=== PATIENT | female | born 1960 | race Caucasian/White ===

== ENCOUNTER 2019-12-27 20:30 | Inpatient (IN) | payer BC ==
[2019-12-27] MEDS ORDERED: MORPHINE SULFATE 4 MG/ML SYRINGE IVP STA (20:37)
[2019-12-27] MEDS ORDERED: HEPARIN SODIUM,PORCINE 5,000 UNIT/ML 1 ML VIAL IV STA (20:38)
--- NOTE | 2019-12-27 20:44 | ED ---
Chest Pain HPI - General Chief Complaint: Chest Pain Stated Complaint: STEMI Time Seen by Provider: 12/27/19 20:30 Source: patient, EMS Mode of arrival: EMS Limitations: no limitations - History of Present Illness Initial Comments: The patient is a 59-year-old female with no past medical history presents emergency room with reported chest pain. Chest pain with onset around 5 PM. She states that it as a 10 out of 10 pain located in the central portion of her chest with radiation to both arms. Denies any unilateral numbness or weakness. No previous history of cardiac disease. Denies cough, fevers or chills. No ripping or tearing sensation to her back. Has not seen a doctor in 20 years. EMS provided the patient with 324 mg aspirin and 3 nitro. Patient denies stress testing or history of cardiac cath. There are no other alleviating, precipitating or modifying factors - Related Data Home Medications Medication Instructions Recorded Confirmed Acetaminophen/Diphenhydramine 1 tab PO HS 12/28/19 12/28/19 [Tylenol PM 500-25mg] Previous Rx's Medication Instructions Recorded Aspirin 81 mg PO DAILY #30 chew 12/30/19 Atorvastatin [Lipitor] 80 mg PO HS #30 tab 12/30/19 Lisinopril [Zestril] 10 mg PO DAILY #30 tab 12/30/19 Metoprolol Tartrate [Lopressor] 50 mg PO BID #60 tab 12/30/19 Nitroglycerin Sl Tabs [Nitrostat] 0.4 mg SUBLINGUAL Q5M PRN #30 tab 12/30/19 Ticagrelor [Brilinta] 90 mg PO BID #60 tab 12/30/19 Allergies Allergy/AdvReac Type Severity Reaction Status Date / Time No Known Allergies Allergy Verified 12/28/19 09:07 Review of Systems ROS Statement: Those systems with pertinent positive or pertinent negative responses have been documented in the HPI. ROS Other: All systems not noted in ROS Statement are negative. EKG Findings - EKG Comments: EKG Findings:: EKG demonstrates a sinus rhythm with a ventricular rate of 74. MD interval 156. QRS 98. QTC of 439. ST segment elevation in 2, 3 and aVF with her typical changes in 1 and aVL. Depression in V2. Past Medical History - Past Family History Father Family Medical History: Cancer, Hypertension Additional Family Medical History / Comment(s): Pancreatic cancer, Kidney cancer Mother Family Medical History: Cancer Additional Family Medical History / Comment(s): Lung cancer General Exam Limitations: no limitations General appearance: alert, in no apparent distress Head exam: Present: atraumatic, normocephalic, normal inspection Eye exam: Present: normal appearance, PERRL, EOMI. Absent: scleral icterus, conjunctival injection, periorbital swelling ENT exam: Present: normal exam, mucous membranes moist Neck exam: Present: normal inspection. Absent: tenderness, meningismus, lymphadenopathy Respiratory exam: Present: normal lung sounds bilaterally. Absent: respiratory distress, wheezes, rales, rhonchi, stridor Cardiovascular Exam: Present: regular rate, normal rhythm, normal heart sounds. Absent: systolic murmur, diastolic murmur, rubs, gallop, clicks GI/Abdominal exam: Present: soft, normal bowel sounds. Absent: distended, tenderness, guarding, rebound, rigid Extremities exam: Present: normal inspection, full ROM, normal capillary refill. Absent: tenderness, pedal edema, joint swelling, calf tenderness Back exam: Present: normal inspection Neurological exam: Present: alert, oriented X3, CN II-XII intact Psychiatric exam: Present: normal affect, normal mood Skin exam: Present: warm, dry, intact, normal color. Absent: rash Course Vital Signs 12/27/19 12/27/19 12/27/19 20:31 20:44 20:48 Temperature Pulse Rate 83 Respiratory 16 Rate Blood Pressure 161/91 134/69 72/51 O2 Sat by Pulse 98 98 98 Oximetry 12/27/19 12/27/19 12/27/19 20:50 20:52 20:55 Temperature 97.6 F Pulse Rate 71 Respiratory 7 L 12 14 Rate Blood Pressure 92/72 107/90 O2 Sat by Pulse 99 98 99 Oximetry 12/27/19 20:56 Temperature Pulse Rate Respiratory Rate Blood Pressure 129/96 O2 Sat by Pulse Oximetry Chest Pain MDM - MDM Upon arrival patient placed in room 11. EKG performed demonstrates inferior wall STEMI. Discuss case with Dr. Rider at 2024. Patient will be taken to the microbiology lab analyst. Received heparin bolus, 4 mg of morphine. Lab studies conducted and portable chest x-ray performed. Patient transferred to the microbiology lab analyst in stable condition Disposition Clinical Impression: ST elevation myocardial infarction (STEMI) Disposition: ADMITTED IP TO THIS HOSP Condition: Serious Is patient prescribed a controlled substance at d/c from ED?: No Decision to Admit Reason: Admit from EC Decision Date: 12/27/19 Decision Time: 20:45
[2019-12-27] MEDS ORDERED: NALOXONE 0.4 MG/ML 1 ML VIAL IV PRN (20:46)
[2019-12-27 20:54] LABS: HCT 46.7 % (34.0-46.0); HGB 15.1 gm/dL (11.4-16.0); MCH 30.4 pg (25.0-35.0); MCHC 32.3 g/dL (31.0-37.0); MCV 94.4 fL (80.0-100.0); Mean Platelet Volume 7.8; Platelet Count 265 k/uL (150-450); RBC 4.95 m/uL (3.80-5.40); RDW 12.5 % (11.5-15.5); WBC 14.5 k/uL (3.8-10.6)
[2019-12-27] MEDS ORDERED: LIDOCAINE 1% INJ 10MG/ML (20 ML MDV) ONE (20:57)
[2019-12-27] MEDS ORDERED: fentaNYL (PF) 50 MCG/ML 2 ML AMP ONE (20:58)
[2019-12-27] MEDS ORDERED: VERAPAMIL 2.5 MG/ML 2 ML AMP ONE (21:04)
[2019-12-27 21:05] LABS: Albumin 4.2 g/dL (3.5-5.0); Calcium 9.4 mg/dL (8.4-10.2); INR 0.9 (<1.2); Potassium 3.9 mmol/L (3.5-5.1); Prothrombin Time 9.7 sec (9.0-12.0); Total Bilirubin 0.3 mg/dL (0.2-1.3); Total Protein 7.8 g/dL (6.3-8.2)
[2019-12-27] MEDS ORDERED: LIDOCAINE 1% INJ 10MG/ML (20 ML MDV) SQ ONE (21:07)
[2019-12-27] MEDS ORDERED: fentaNYL (PF) 50 MCG/ML 2 ML AMP IVP ONE (21:07)
[2019-12-27] MEDS ORDERED: VERAPAMIL SYRINGE (5 MG/10 ML) INTRAARTER ONE (21:10)
[2019-12-27] MEDS ORDERED: IV FLUID CONTINUATION 1,000 ML IV ONE (21:11)
[2019-12-27 21:12] LABS: Creatine Kinase MB 0.7 ng/mL (0.0-2.4); Troponin I 0.034 ng/mL (0.000-0.034)
[2019-12-27] MEDS ORDERED: BIVALIRUDIN BOLUS 250 MG/50 ML IV ONE (21:20)
[2019-12-27] MEDS ORDERED: TICAGRELOR 90 MG TAB ONE (21:20)
[2019-12-27] MEDS ORDERED: BIVALIRUDIN 250 MG in SODIUM CHLORIDE 0.9% 50 ML IV ONE (21:21)
[2019-12-27] MEDS ORDERED: TICAGRELOR 90 MG TAB PO ONE (21:26)
[2019-12-27] MEDS ORDERED: ATROPINE SULFATE 0.1 MG/ML 10ML SYRINGE IV ONE (21:28)
--- NOTE | 2019-12-27 21:33 | XR ---
EXAMINATION TYPE: XR chest 2V DATE OF EXAM: 12/27/2019 COMPARISON: NONE HISTORY: Chest pain TECHNIQUE: FINDINGS: Heart is normal. Lungs are clear of infiltrate. Exam limited by patient's size. There is no heart failure. There is no sign of pleural effusion. There are chest leads. IMPRESSION: No active cardiopulmonary disease.
[2019-12-27] MEDS ORDERED: IOPAMIDOL-370 125ML BTL INJ ONE (21:39)
[2019-12-27] MEDS ORDERED: IOPAMIDOL-370 100ML BTL INJ ONE ×2 (21:52)
--- NOTE | 2019-12-27 22:00 | CONS ---
CONSULTATION Mrs. Roberts is a 59-year-old female with no prior documented history of coronary artery disease who does not follow with a physician, who for the last 3 days has been having chest discomfort on and off. Today the discomfort was quite severe, radiating to both arms. She felt dizzy and quite dyspneic, came into the emergency room and was found to have evidence of inferoposterior myocardial infarction. The patient has not seen a physician in many years. She takes no medication. She has no documented history of hypertension, hyperlipidemia, diabetes, and she is a nonsmoker. She has no prior history of chest discomfort or significant dyspnea on exertion. No PND, orthopnea or peripheral edema. No palpitation or syncope. Her coronary risk factors are negative for hypertension, hyperlipidemia or diabetes, although she has not seen a physician. REVIEW OF SYSTEMS: RESPIRATORY SYSTEM: No documented history of asthma, emphysema . GI SYSTEM: No recent GI bleeding. No peptic ulcer disease. SYSTEM: No dysuria or hematuria. NERVOUS SYSTEM: No stroke or seizure. SOCIAL HISTORY: No history of alcohol or tobacco use. PHYSICAL EXAMINATION: [id number] female, alert, oriented, in mild discomfort, evaluated in the cardiac catheterization laboratory. Heart rate in the 70s. HEAD: Normocephalic. Eyes: Sclerae anicteric. NECK: Good carotid upstroke. No bruit. No jugular venous distention. LUNGS: Clear to auscultation anteriorly. HEART: Regular rate, rhythm. S1, S2. No S3. No S4. No rub. ABDOMEN: Soft, nontender, obese. Positive bowel sounds. No organomegaly. EXTREMITIES: No edema. EKG revealed sinus mechanism, ST-segment elevation II, III, aVF with ST-segment depression and T-wave inversion in leads V1, V2 as well as lead I and aVL consistent with inferoposterior myocardial infarction. IMPRESSION: Acute myocardial infarction. RECOMMENDATIONS: I have recommended proceeding with coronary angiography to assess her status and guide her treatment. The rationale behind the procedure as well as risks and complications were discussed with the patient, who is in full understanding and agreement. Thank you for this consult. Will follow with you. MMODL / IJN: [id number] /
[2019-12-27] MEDS ORDERED: MAG HYDROX/AL HYDROX/SIMETH 30 ML CUP PO PRN (22:05)
[2019-12-27] MEDS ORDERED: ZOLPIDEM 5 MG TAB PO PRN (22:05)
[2019-12-27] MEDS ORDERED: RX INFO: IV CONTRAST WAS GIVEN 1 EACH MISC MISCELLANE PRN (22:05)
[2019-12-27] MEDS ORDERED: ATROPINE SULFATE 0.1 MG/ML 10ML SYRINGE IV PRN (22:05)
[2019-12-27] MEDS ORDERED: NITROGLYCERIN SL TABS 0.4 MG TAB SUBLINGUAL PRN (22:05)
[2019-12-27] MEDS ORDERED: METOPROLOL TARTRATE 25 MG TAB PO SCH (22:15)
[2019-12-27] MEDS ORDERED: SODIUM CHLORIDE 0.9% 1,000 ML IV SCH (22:15)
--- NOTE | 2019-12-27 22:41 | CC ---
CARDIAC CATHETERIZATION REPORT Mrs. Roberts is a 59-year-old female who does not follow with a physician. She presented to the emergency room with acute chest discomfort with ST-segment elevation in the inferior leads. In view of that, recommendation was made regarding cardiac catheterization. The procedure, its risks and complications were discussed with the patient, who was in full understanding and agreement. PROCEDURE DESCRIPTION: Patient was brought to the lab animal technician. She was draped and prepped it usual fashion. Using Xylocaine anesthesia and Seldinger technique, a 6-Ku[place]i sheath was introduced in the right radial artery. Selective right and left coronary angiography was performed using 6-Ku[place]i, FR4 guiding catheter. After obtaining images of the right coronary arteries and performing angioplasty and stenting, a 5-[place]i 3-1/2 bend left Betty catheter was introduced into the system and images of the left coronary system were also obtained. Following that, a 5-Ku[place]i tight pigtail catheter was introduced into the left ventricle and pressures were calculated. Following that, catheter and sheath were removed. Hemostasis was obtained with deployment of a TR band. There was no immediate complication. Patient was returned to her room in stable condition. There was no immediate complication. Of note, the patient received intravenous verapamil. FINDINGS: FLUOROSCOPY: There was calcification involving the left main and the LAD. LEFT MAIN: This is a large-sized vessel bifurcating into left circumflex and left anterior descending artery. The left main coronary artery has a 30% plaque distally prior to the bifurcation. LEFT ANTERIOR DESCENDING ARTERY: This is a large-sized vessel reaching toward the apex with a wrap around the apex segment giving rise to a moderately sized diagonal branch. The left anterior descending artery has mild intimal disease of 20% with no evidence of high-grade stenosis. LEFT CIRCUMFLEX: This is a nondominant vessel giving rise to one obtuse marginal branch. The left circumflex at the ostium has a 40% to 50% plaque. The obtuse marginal branch in the mid segment has another 50% plaque. The rest of the vessel has no high- grade stenosis. RIGHT CORONARY ARTERY: This is a large dominant vessel bifurcating distally into PDA and posterolateral segment and branches. The right coronary artery in the proximal segment has a 99% stenosis with haziness and slow flow into the distal vessels. HEMODYNAMICS: There was no gradient across the aortic valve. The left ventricular end- diastolic pressure was 20 mmHg. CONCLUSION: 1. Subtotally occluded proximal right coronary artery. 2. Mild disease in distal left main. 3. Moderate disease in the left circumflex. 4. Mild disease in the LAD. RECOMMENDATIONS: In view of findings and anatomy, I have recommended proceeding with angioplasty and stenting of the right coronary artery. The procedure, its risks and complications were discussed with the patient, who is in full understanding and agreement. KETTY / HOWARD: [id number] /
[2019-12-27 23:00] LABS: Glucose,Whole Blood 152 mg/dL (75-99)
--- NOTE | 2019-12-28 00:38 | PTCA ---
PERCUTANEOUSTRANS CORORONARY ANGIOGRAPHY Mrs. Roberts is a 59-year-old female who presented with an acute inferior myocardial infarction, underwent cardiac catheterization was found to have a subtotally occluded proximal right coronary artery. In view of that, recommendation was made regarding angioplasty and stenting, the procedure as well as the risks, and the complications were discussed with the patient who is in full understanding and agreement. PROCEDURE: Using the 6-Sinhala FR4 guiding catheter, after obtaining images of the right coronary artery, 0.014 balanced medium weight J-wire was advanced across the lesion, positioned distally. Subsequently an Lima catheter was introduced and one run was done with removal of thrombotic material. Following that, a 3.5 x 23 mm Xience Debby stent was deployed postdilated at 16 atmospheres. Following that, the balloon was removed and a 4.0 x 15 mm Xience Debby stent was deployed proximal to the first one and postdilated to 16 atmospheres and subsequently a 3.5 x 12 mm Xience Debby stent was deployed distally and postdilated to 16 atmospheres. Following that, a 4.0 x 15 mm NC Emerge balloon was advanced and multiple inflations were done in the stent, a maximum of 14 atmospheres. After the last inflation, after appropriate wait, the balloon and the guidewire were withdrawn back in the guiding catheter. Images were obtained, repeated. Those images reveal stable successful stenting. At that point, the guiding catheter, the balloon and the guidewire were removed. Images of the left coronary system and left ventricular end-diastolic pressure were calculated. Following that, catheter and sheaths were removed. Hemostasis was obtained with deployment of TR band. There was no immediate complication. Patient was returned to her room in stable condition. Of note, the patient received Angiomax as well as oral loading dose of Brilinta. Her EKG changes have improved and her discomfort has improved as well. Of note, during the procedure she had episode of sinus tachycardia, accelerated idioventricular rhythm and junctional rhythm that resolved. RESULTS: Successful stenting of subtotally occluded proximal right coronary artery with reduction of stenosis from 99% to 0%. RECOMMENDATION: Patient will be continued on aspirin, Brilinta, beta ethan, and statin. The importance of dual antiplatelet treatment were discussed with the patient and her family and they are in full understanding and agreement. Duration of procedure is 50 minutes. MMODL / IJN: [id number] /
[2019-12-28] MEDS ORDERED: ONDANSETRON 4 MG/2 ML VIAL IVP PRN (00:53)
--- NOTE | 2019-12-28 07:33 | PN ---
PROGRESS NOTE Mrs. Roberts is a 59-year-old female who has not seen a physician in over 20 years, who presented with an acute inferior myocardial infarction, underwent stenting of the right coronary artery that was subtotally occluded. She is doing well this morning. She has minimal chest discomfort. Her breathing has been stable. She denies any dizziness or palpitation. No nausea. She continued to be in sinus mechanism. She continues to be on aspirin once a day, lisinopril 5 mg twice a day, metoprolol tartrate 25 mg twice a day, Brilinta 90 mg daily. PHYSICAL EXAMINATION: Blood pressure running in the 160s with the heart rate in the 80s. LUNGS: Clear. HEART: Regular rate and rhythm. S1, S2. No S3 with systolic murmur heard at the base, ejection type. No diastolic murmur. No rub. ABDOMEN: Soft, nontender. EXTREMITIES: No edema. Right radial pulse intact. EKG revealed evidence of inferior myocardial infarction with improvement in the ST elevation. LAB DATA: BUN and creatinine 10 and 0.92. Her troponin up to 50. IMPRESSION: 1. Status post stenting of the right coronary artery in a setting of an acute inferior myocardial infarction. 2. Mild to moderate disease in the left coronary system. 3. Hypertension, not treated in the past. RECOMMENDATION: From the cardiac standpoint, I will increase the dose of her lisinopril and metoprolol. If stable, she should be able to be transferred to telemetry floor. An echocardiogram with Doppler will be obtained today and depending on her progress, further recommendation will be made. MMODL / IJN: [id number] /
[2019-12-28] MEDS: lisinopriL 10 MG TAB PO SCH ×2 (09:14→22:05)
[2019-12-28] MEDS: TICAGRELOR 90 MG TAB PO SCH ×2 (09:14→22:06)
[2019-12-28] MEDS: ASPIRIN 81 MG PO SCH (09:14)
[2019-12-28] MEDS: METOPROLOL TARTRATE 50 MG TAB PO SCH ×2 (09:15→22:06)
[2019-12-28 09:19] LABS: Glucose 137 mg/dL (74-99)
[2019-12-28 09:20] LABS: African American GFR (CKD) >90 (>60 ml/min/1.73 sqM); Anion Gap 8 mmol/L; Blood Urea Nitrogen 8 mg/dL (7-17); Calcium 8.8 mg/dL (8.4-10.2); Carbon Dioxide 25 mmol/L (22-30); Chloride 103 mmol/L (98-107); Cholesterol 200 mg/dL (<200); HDL Cholesterol 63 mg/dL (40-60); LDL Cholesterol,Calculated 120 mg/dL (0-99); Non-African American GFR(CKD) >90 (>60 ml/min/1.73 sqM); Potassium 4.3 mmol/L (3.5-5.1); Sodium 136 mmol/L (137-145); Triglycerides 84 mg/dL (<150)
--- NOTE | 2019-12-28 10:48 | ECHOF ---
Referral Reason:mi MEASUREMENTS -------- HEIGHT: 170.2 cm WEIGHT: 124.3 kg BP: 161/95 RVIDd: 3.1 cm (< 3.3) IVSd: 1.4 cm (0.6 - 1.1) LVIDd: 4.3 cm (3.9 - 5.3) LVPWd: 1.4 cm (0.6 - 1.1) IVSs: 1.8 cm LVIDs: 3.3 cm LVPWs: 1.6 cm LAESV Index (A-L): 20.64 ml/m MV EXCURSION: 17.570 mm (> 18.000) MV EF SLOPE: 100 mm/s (70 - 150) EPSS: 1.1 cm Ao Diam: 3.3 cm (2.0 - 3.7) LA Diam: 2.0 cm (2.7 - 3.8) LA/Ao: 0.62 MV E Tonny: 0.78 m/s MV DecT: 140 ms MV A Tonny: 1.10 m/s MV E/A Ratio: 0.71 FINDINGS -------- This was a technically difficult study with suboptimal apical views. The left ventricular size is normal. There is moderate concentric left ventricular hypertrophy. O verall left ventricular systolic function is mild-moderately impaired with, an EF between 40 - 45 %. Mitral Doppler inflow pattern suggests diastolic filling abnormality 17.36. Mid inferior LV wall motion is hypokinetic. Mid inferoseptal LV wall motion is hypokinetic. Apical inferior LV wall motion is hypokinetic. The right ventricle is normal in size. Normal LA size by volume 22+/-6 ml/m2. The right atrial size is normal. xx ml of Lumason was utilized for enhancement of images. Interatrial and interventricular septum intact. There is no evidence of aortic regurgitation. There is no evidence of aortic stenosis. No mitral regurgitation. Mild tricuspid regurgitation present. There is no evidence of pulmonary hypertension. The right v entricular systolic pressure, as measured by Doppler, is {RVSP}. There is no pulmonic regurgitation present. The aortic root size is normal. IVC Not well visulized. There is no pericardial effusion. CONCLUSIONS -------- 1. This was a technically difficult study with suboptimal apical views. 2. The left ventricular size is normal. 3. There is moderate concentric left ventricular hypertrophy. 4. Overall left ventricular systolic function is mild-moderately impaired with, an EF between 40 - 45 %. 5. Mitral Doppler inflow pattern suggest diastolic filling abnormality 17.36. 6. Mid inferior LV wall motion is hypokinetic. 7. Mid inferoseptal LV wall motion is hypokinetic. 8. Apical inferior LV wall motion is hypokinetic. 9. The right ventricle is normal in size. 10. Normal LA size by volume 22+/-6 ml/m2. 11. The right atrial size is normal. 12. xx ml of Lumason was utilized for enhancement of images. 13. Interatrial and interventricular septum intact. 14. There is no evidence of aortic regurgitation. 15. There is no evidence of aortic stenosis. 16. No mitral regurgitation. 17. Mild tricuspid regurgitation present. 18. There is no evidence of pulmonary hypertension. 19. The right ventricular systolic pressure, as measured by Doppler, is {RVSP}. 20. There is no pulmonic regurgitation present. 21. The aortic root size is normal. 22. IVC Not well visulized. 23. There is no pericardial effusion. DIVINITY PROFESSOR: Yee Cota RDCS
[2019-12-28 11:37] VITALS: BMI 43.0
[2019-12-28] MEDS ORDERED: ACETAMINOPHEN TAB 325 MG TAB PO PRN (16:07)
[2019-12-28 18:25] LABS: Hemoglobin A1C 6.1 % (4.0-6.0)
--- NOTE | 2019-12-28 21:47 | P.HPIM ---
History of Present Illness H&P Date: 12/28/19 Chief Complaint: Chest pain Patient is a 59-year-old female without significant past medical history presents to ER with complaints of chest pain started around 5 PM yesterday. 10 out of 10 in severity mid retrosternal region with radiation to both arms. Patient also felt dizzy and and was also short of breath.. Denied any headache. No nausea vomiting or diaphoresis. No orthopnea no PND. Denied any exertional short of breath. Patient presents to ER and was found to have ST elevated GA. Patient was taken to cardiac catheterization. Patient underwent stent placement. Currently sitting in the chair comfortably. No complaints of chest pain or shortness of breath. Tolerating oral diet. Laboratory data showed WBC 14.5, hemoglobin 15.1, platelets 265 Other laboratory data reviewed negative. LDL 120 Initial troponin is 0.034, went up to 50.0 and 53.0 EKG showed sinus rhythm with marked sinus arrhythmia with ST elevation 2, 3 and aVF. Review of Systems Constitutional: Patient denies any fever or chills . No generalized weakness or weight loss. Abdomen: Patient denied nausea vomiting and diarrhea and abdominal pain. Cardiovascular: Patient denies any chest pain or short of breath no palpitations. Respiratory: patient denied any cough is from production. No shortness of breath Neurologic: Patient denied any numbness or tingling headache. Musculoskeletal: Patient denies any complaints of joint swelling or deformity. Skin: Negative Psychiatric: Negative Endocrine: No heat or cold intolerance. No recent weight gain. Genitourinary: No dysuria or hematuria. All other 14 point ROS negative except the above Past Medical History History of Any Multi-Drug Resistant Organisms: None Reported Past Surgical History: Heart Catheterization With Stent Past Anesthesia/Blood Transfusion Reactions: No Reported Reaction Date of Last Stent Placement:: 12/27/19 Past Psychological History: No Psychological Hx Reported Smoking Status: Never smoker Past Alcohol Use History: None Reported Past Drug Use History: None Reported - Past Family History Father Family Medical History: Cancer, Hypertension Additional Family Medical History / Comment(s): Pancreatic cancer, Kidney cancer Mother Family Medical History: Cancer Additional Family Medical History / Comment(s): Lung cancer Medications and Allergies Home Medications Medication Instructions Recorded Confirmed Type Acetaminophen/Diphenhydramine 1 tab PO HS 12/28/19 12/28/19 History [Tylenol PM 500-25mg] Ibuprofen [Advil] 400 mg PO ONCE PRN 12/28/19 12/28/19 History Allergies Allergy/AdvReac Type Severity Reaction Status Date / Time No Known Allergies Allergy Verified 12/28/19 09:07 Physical Exam Vitals: Vital Signs Temp Pulse Resp BP Pulse Ox 12/28/19 07:00 86 16 158/87 98 12/28/19 06:15 85 161/95 98 12/28/19 06:00 85 14 166/104 98 12/28/19 05:45 81 162/95 98 12/28/19 05:30 84 97 12/28/19 05:15 82 14 162/95 99 12/28/19 05:00 82 99 12/28/19 04:45 84 98 12/28/19 04:30 86 16 97 12/28/19 04:15 90 163/104 12/28/19 04:00 86 16 163/98 98 12/28/19 03:45 86 161/99 97 12/28/19 03:30 90 18 160/97 98 12/28/19 03:15 98.6 F 84 16 162/104 98 12/28/19 03:00 87 168/105 98 12/28/19 02:45 88 167/104 96 12/28/19 02:30 90 171/114 98 12/28/19 02:15 88 18 170/103 98 12/28/19 02:00 86 171/109 98 12/28/19 01:50 94 L 12/28/19 01:45 94 12/28/19 01:30 96 155/99 12/28/19 01:15 89 158/105 95 12/28/19 01:00 91 184/97 98 12/28/19 00:50 96 12/28/19 00:45 93 174/99 99 12/28/19 00:30 92 13 182/105 99 12/28/19 00:15 96 9 L 174/113 99 12/28/19 00:00 97.7 F 98 13 182/96 99 12/27/19 23:50 99 12/27/19 23:45 101 H 10 L 177/104 12/27/19 23:30 98 12 179/107 99 12/27/19 23:26 95 9 L 179/107 99 12/27/19 23:20 95 12/27/19 23:15 105 H 14 99 12/27/19 23:00 97.6 F 102 H 12 12/27/19 22:50 12 96 12/27/19 22:45 105 H 16 159/106 12/27/19 20:58 129/96 12/27/19 20:56 129/96 12/27/19 20:55 97.6 F 14 99 12/27/19 20:52 12 107/90 98 12/27/19 20:50 71 7 L 92/72 99 12/27/19 20:48 72/51 98 12/27/19 20:44 134/69 98 12/27/19 20:31 83 16 161/91 98 Intake and Output 12/27/19 12/28/19 12/28/19 22:59 06:59 14:59 Intake Total 531 1050 100 Output Total 1750 450 Balance 531 700 -350 Intake: IV 531 800 100 Sodium Chloride 0.9% 1, 800 100 000 ml @ 100 mls/hr IV . [facility] Rx#:[id number] Oral 250 Output: Urine 1750 450 Other: Voiding Method Bedside Commode # Voids 0 0 Weight 124.7 kg 124.7 kg PHYSICAL EXAMINATION: Patient is lying in the bed comfortably, no acute distress, awake alert and oriented.. HEENT: Normocephalic. Neck is supple. Pupils reactive. Nostrils clear. Oral cavity is moist. Ears reveal no drainage. Neck reveals no JVD, carotid bruits, or thyromegaly. CHEST EXAMINATION: Trachea is central. Symmetrical expansion. Lung wilcox clear to auscultation and percussion. CARDIAC: Normal S1, S2 with no gallops. No murmurs ABDOMEN: Soft. Bowel sounds normal. No organomegaly. No abdominal bruits. Extremities: reveal no edema. No clubbing or cyanosis Neurologically awake, alert, oriented x3 with well-coordinated movements. No focal deficits noted Skin: No rash or skin lesions. Psychiatric: Coperative. Nonsuicidal Musculoskeletal: No joint swelling or deformity. Normal range of motion. Results CBC & Chem 7: 12/27/19 20:44 12/28/19 08:42 Labs: Abnormal Lab Results - Last 24 Hours (Table) 12/27/19 12/27/19 12/27/19 Range/Units 20:44 20:44 20:44 WBC 14.5 H (3.8-10.6) k/uL Hct 46.7 H (34.0-46.0) % APTT 21.0 L (22.0-30.0) sec Sodium (137-145) mmol/L Glucose 180 H (74-99) mg/dL POC Glucose (mg/dL) (75-99) mg/dL Troponin I (0.000-0.034) ng/mL Cholesterol (<200) mg/dL LDL Cholesterol, Calc (0-99) mg/dL HDL Cholesterol (40-60) mg/dL 12/27/19 12/28/19 12/28/19 Range/Units 22:59 02:30 08:42 WBC (3.8-10.6) k/uL Hct (34.0-46.0) % APTT (22.0-30.0) sec Sodium (137-145) mmol/L Glucose (74-99) mg/dL POC Glucose (mg/dL) 152 H (75-99) mg/dL Troponin I 50.000 H* 53.000 H* (0.000-0.034) ng/mL Cholesterol (<200) mg/dL LDL Cholesterol, Calc (0-99) mg/dL HDL Cholesterol (40-60) mg/dL 12/28/19 Range/Units 08:42 WBC (3.8-10.6) k/uL Hct (34.0-46.0) % APTT (22.0-30.0) sec Sodium 136 L (137-145) mmol/L Glucose 137 H (74-99) mg/dL POC Glucose (mg/dL) (75-99) mg/dL Troponin I (0.000-0.034) ng/mL Cholesterol 200 H (<200) mg/dL LDL Cholesterol, Calc 120 H (0-99) mg/dL HDL Cholesterol 63 H (40-60) mg/dL Thrombosis Risk Factor Assmnt - DVT/VTE Prophylaxis DVT/VTE Prophylaxis: Pharmacologic Prophylaxis ordered - Choose All That Apply Each Factor Represents 1 point: Acute GA, Age 41-60 years Thrombosis Risk Factor Assessment Total Risk Factor Score: 2 Thrombosis Risk Factor Assessment Level: Low Risk Assessment and Plan Assessment: Acute inferior wall GA. Status post cardiac catheterization and stent placement Mild leukocytosis likely reactive. Hypertension newly diagnosed Morbid obesity BMI 43.1 DVT prophylaxis Plan: Patient will be continued aspirin, atorvastatin, metoprolol, lisinopril and Brilinta. Continue to monitor blood pressure and follow-up 2D echocardiogram. Cardiology on board. Further recommendations based on the clinical course. Time with Patient: Greater than 30
[2019-12-28] MEDS: diphenhydrAMINE 25 MG CAP PO SCH (22:06)
[2019-12-28] MEDS: ATORVASTATIN 80 MG TAB PO SCH (22:06)
[2019-12-29 06:22] LABS: Basophils # (A) 0.1 k/uL (0-0.2); Basophils % (A) 0 %; Eosinophils # (A) 0.2 k/uL (0-0.7); Eosinophils % (A) 2 %; HCT 47.5 % (34.0-46.0); HGB 15.1 gm/dL (11.4-16.0); Lymphocytes # (A) 3.6 k/uL (1.0-4.8); Lymphocytes % (A) 26 %; MCH 30.3 pg (25.0-35.0); MCHC 31.8 g/dL (31.0-37.0); MCV 95.2 fL (80.0-100.0); Mean Platelet Volume 7.8; Monocytes # (A) 0.9 k/uL (0-1.0); Monocytes % (A) 6 %; Neutrophils # (A) 8.8 k/uL (1.3-7.7); Neutrophils % (A) 64 %; Platelet Count 292 k/uL (150-450); RBC 4.99 m/uL (3.80-5.40); RDW 12.6 % (11.5-15.5); WBC 13.7 k/uL (3.8-10.6)
[2019-12-29 06:27] LABS: African American GFR (CKD) >90 (>60 ml/min/1.73 sqM); Anion Gap 4 mmol/L; Blood Urea Nitrogen 10 mg/dL (7-17); Calcium 9.2 mg/dL (8.4-10.2); Carbon Dioxide 27 mmol/L (22-30); Chloride 109 mmol/L (98-107); Glucose 119 mg/dL (74-99); Non-African American GFR(CKD) >90 (>60 ml/min/1.73 sqM); Potassium 4.1 mmol/L (3.5-5.1); Sodium 140 mmol/L (137-145)
[2019-12-29] MEDS: ASPIRIN 81 MG PO SCH (08:02)
[2019-12-29] MEDS: lisinopriL 10 MG TAB PO SCH ×2 (08:03→09:17)
[2019-12-29] MEDS: TICAGRELOR 90 MG TAB PO SCH ×2 (08:03→20:39)
[2019-12-29] MEDS: METOPROLOL TARTRATE 50 MG TAB PO SCH ×3 (08:05→20:39)
--- NOTE | 2019-12-29 09:25 | P.PN ---
Subjective Progress Note Date: 12/29/19 Principal diagnosis: Myocardial infarction This is a 59-year-old female who was admitted to the hospital with acute inferior wall myocardial infarction and underwent stenting of the RCA. Patient has been doing well. Her blood pressure was high yesterday, but seemed to be running low today. I'm going to cut back the dose of the lisinopril to once daily. Otherwise patient is doing well.no complaints of any chest pain, shortness of breath, dizziness or syncope. Patient is tolerating activity well. No arrhythmias noted. If stable patient be discharged home tomorrow Objective - Vital Signs Vital signs: Vital Signs Temp 97.0 F L 12/29/19 08:10 Pulse 69 12/29/19 08:10 Resp 16 12/29/19 08:10 BP 102/69 12/29/19 09:18 Pulse Ox 97 12/29/19 08:10 Intake & Output 12/28/19 12/29/19 12/29/19 18:59 06:59 18:59 Intake Total 900 Output Total 1950 600 Balance -1050 -600 Weight 124.7 kg 122.4 kg Intake: IV 500 Sodium Chloride 0.9% 1, 500 000 ml @ 100 mls/hr IV . Q10H [facility] Rx#:[id number] Oral 400 Output: Urine 1950 600 Other: Voiding Method Bedside Commode Toilet # Voids 0 - Exam GENERAL EXAM: Patient is alert and oriented and doesn't appear to be in any acute distress HEENT: Normocephalic. Normal reaction of pupils, equal size, normal range of extraocular motion. No erythema or exudates in the throat. NECK: No masses, no nuchal rigidity. CHEST: No chest wall deformity. LUNGS: Equal air entry with no crackles or wheeze. HEART: S1 and S2 normal with no audible mumurs or gallops. Regular rhythm, femorals equal on both sides.. ABDOMEN: No hepatosplenomegaly, normal bowel sounds, no guarding or rigidity. SKIN: No rashes CENTRAL NERVOUS SYSTEM: No focal deficits. EXTREMITIES: No cyanosis, clubbing or edema. - Labs CBC & Chem 7: 12/29/19 05:56 12/29/19 05:56 Labs: Abnormal Lab Results - Last 24 Hours (Table) 12/28/19 12/28/19 12/29/19 Range/Units 08:42 08:42 05:56 WBC (3.8-10.6) k/uL Hct (34.0-46.0) % Neutrophils # (1.3-7.7) k/uL Chloride 109 H (98-107) mmol/L Glucose 119 H (74-99) mg/dL Hemoglobin A1c 6.1 H (4.0-6.0) % Troponin I 53.000 H* (0.000-0.034) ng/mL 12/29/19 Range/Units 05:56 WBC 13.7 H (3.8-10.6) k/uL Hct 47.5 H (34.0-46.0) % Neutrophils # 8.8 H (1.3-7.7) k/uL Chloride (98-107) mmol/L Glucose (74-99) mg/dL Hemoglobin A1c (4.0-6.0) % Troponin I (0.000-0.034) ng/mL Assessment and Plan (1) Myocardial infarction, inferior wall Current Visit: Yes Status: Acute Code(s): I21.19 - STEMI INVOLVING OTH CORONARY ARTERY OF INFERIOR WALL SNOMED Code(s): 66851281 (2) Hypertension Current Visit: Yes Status: Acute Code(s): I10 - ESSENTIAL (PRIMARY) HYPERTENSION SNOMED Code(s): 90730802 (3) Mild hypercholesterolemia Current Visit: Yes Status: Acute Code(s): E78.00 - PURE HYPERCHOLESTEROLEMIA, UNSPECIFIED SNOMED Code(s): 34135439 Plan: Patient is critically stable. Will cut back the dose of the lisinopril. Increase activity. Possible discharge tomorrow.
[2019-12-29] MEDS: ATORVASTATIN 80 MG TAB PO SCH (20:39)
[2019-12-29] MEDS: diphenhydrAMINE 25 MG CAP PO SCH (20:39)
[2019-12-30 04:22] VITALS: TEMP 98
[2019-12-30] MEDS: ASPIRIN 81 MG PO SCH (10:08)
[2019-12-30] MEDS: METOPROLOL TARTRATE 50 MG TAB PO SCH (10:08)
[2019-12-30] MEDS: TICAGRELOR 90 MG TAB PO SCH (10:08)
[2019-12-30] MEDS: lisinopriL 10 MG TAB PO SCH (10:09)
[2019-12-30 10:58] VITALS: BP 116/71; PULSE 70; RESP 16
--- NOTE | 2019-12-30 12:29 | P.PN ---
Subjective Progress Note Date: 12/30/19 This is a 59-year-old female who was admitted to the hospital with acute inferior wall myocardial infarction and underwent stenting of the RCA. Patient has been doing well. Her blood pressure was high yesterday, but seemed to be running low today. I'm going to cut back the dose of the lisinopril to once daily. Otherwise patient is doing well.no complaints of any chest pain, shortness of breath, dizziness or syncope. Patient is tolerating activity well. No arrhythmias noted. If stable patient be discharged home tomorrow 12/29: Patient is feeling very well this morning. She is anxious to be di scharged as she has not been sleeping since she came in the hospital. She denies having any chest pain, shortness of breath, lightheadedness or dizziness, no palpitations and no vomiting or nausea. cardiac monitor has been a sinus rhythm. She has had no events overnight. Echocardiogram reveals EF 40-45%, mild tricuspid regurgitation. Physical examination: GENERAL EXAM: Patient is alert and oriented in no acute distress HEENT: Normocephalic. Normal reaction of pupils, equal size, normal range of extraocular motion. No erythema or exudates in the throat. NECK: No masses, no nuchal rigidity. CHEST: No chest wall deformity. LUNGS: Equal air entry with no crackles or wheeze. HEART: S1 and S2 normal with no audible mumurs or gallops. Regular rhythm, femorals equal on both sides.. ABDOMEN: No hepatosplenomegaly, normal bowel sounds, no guarding or rigidity. SKIN: No rashes CENTRAL NERVOUS SYSTEM: No focal deficits. EXTREMITIES: No cyanosis, clubbing or edema. Assessment: Acute inferior wall ST elevated myocardial infarction Hypertension Hyperlipidemia Plan: Patient is cleared by cardiology for discharge home Continue current medications Patient to follow up with Dr. Rider in one week Nurse practitioner note has been reviewed, I agree with documented findings and plan of care. Patient was seen and examined. Objective - Vital Signs Vital signs: Vital Signs Temp 98 F 12/30/19 04:00 Pulse 66 12/29/19 16:11 Resp 20 12/30/19 04:00 BP 119/77 12/30/19 04:00 Pulse Ox 99 12/30/19 04:00 Intake & Output 12/29/19 12/30/19 12/30/19 18:59 06:59 18:59 Intake Total 120 Output Total 350 Balance -350 120 Weight 119.4 kg Intake: Oral 120 Output: Urine 350 Other: Voiding Method Toilet Toilet # Voids 2 - Labs CBC & Chem 7: 12/29/19 05:56 12/29/19 05:56
--- NOTE | 2020-01-01 08:22 | CDI ---
Documentation Clarification Form Date: 01/01/2020 08:11:25 AM From: Tamera Patel CCS, CCDS Admit Date: 12/27/2019 08:48:00 PM Patient Name: Shannan Roberts Visit Number: [id number] Discharge Date: 12/30/2019 03:09:00 PM ATTENTION: The Clinical Documentation Specialists (CDI) and [facility] Coding Staff appreciate your assistance in clarifying documentation. Please respond to the clarification below the line at the bottom and electronically sign. The CDI & [facility] Coding staff will review the response and follow-up if needed. Please note: Queries are made part of the Legal Health Record. If you have any questions, please contact the author of this message via ITS. Dr. Sal Rider: Per the 12/26 PTCA Procedure Note, the following is documented: "Her EKG changes have improved and her discomfort has improved as well. Of note, during the procedure she had episode of sinus tachycardia, accelerated idioventricular rhythm and junctional rhythm that resolved." Patients Admitting Diagnosis: Inferoposterior myocardial infarction. Post-Operative Diagnosis: Left Heart Cath: Subtotally occluded proximal right coronary artery. Mild disease in distal left main. Moderate disease in the left circumflex. Mild disease in the LAD. PTCA: Successful stenting of subtotally occluded proximal right coronary artery with reduction of stenosis from 99% to 0%. Procedure performed: Left Heart Catheterization & PTCA with four coronary stents. History/Risk Factors: No documented prior history, does not see a physician. Clinical Indicators: Presented to the ED on 12/26 & diagnosed with a STEMI Treatment: Urgent Left Heart Catheterization with subsequent PTCA requiring multiple stents. IV Morphine, IV Heparin. In order to accurately reflect this patients severity of illness, please clarify if the intro-operative sinus tachycardia is: A complication of the surgical procedure An expected outcome of the surgical procedure, XXXX Please specify cause if known: Other please specify: Unable to determine (Last Revision: August 2019) MTDD
--- NOTE | 2020-01-17 20:20 | P.PN ---
Subjective Progress Note Date: 12/29/19 Principal diagnosis: Acute NM Patient is a 59-year-old female without significant past medical history presents to ER with complaints of chest pain started around 5 PM yesterday. 10 out of 10 in severity mid retrosternal region with radiation to both arms. Patient also felt dizzy and and was also short of breath.. Denied any headache. No nausea vomiting or diaphoresis. No orthopnea no PND. Denied any exertional short of breath. Patient presents to ER and was found to have ST elevated NM. Patient was taken to cardiac catheterization. Patient underwent stent placement. Currently sitting in the chair comfortably. No complaints of chest pain or shortness of breath. Tolerating oral diet. Laboratory data showed WBC 14.5, hemoglobin 15.1, platelets 265 Other laboratory data reviewed negative. LDL 120 Initial troponin is 0.034, went up to 50.0 and 53.0 EKG showed sinus rhythm with marked sinus arrhythmia with ST elevation 2, 3 and aVF. 12/29/2019 Patient is currently lying in the bed comfortably. Blood pressure is better controlled today. Denied any complaints of chest pain or shortness of breath. Patient was hypotensive today and lisinopril dosing has been reduced. No dizziness or lightheadedness. Tolerating oral diet. No arrhythmias noted overnight. Anticipate discharge in the next 24 hours with more clinical improvement. Objective - Vital Signs Vital signs: Vital Signs Temp 97.6 F 12/29/19 16:11 Pulse 66 12/29/19 16:11 Resp 16 12/29/19 16:11 BP 105/66 12/29/19 16:11 Pulse Ox 100 12/29/19 16:11 Intake & Output 12/28/19 12/29/19 12/29/19 18:59 06:59 18:59 Intake Total 900 Output Total 1950 600 Balance -1050 -600 Weight 124.7 kg 122.4 kg Intake: IV 500 Sodium Chloride 0.9% 1, 500 000 ml @ 100 mls/hr IV . Q10H [facility] Rx#:[id number] Oral 400 Output: Urine 1950 600 Other: Voiding Method Bedside Commode Toilet Toilet # Voids 0 2 - Exam PHYSICAL EXAMINATION: Patient is lying in the bed comfortably, no acute distress, awake alert and oriented.. HEENT: Normocephalic. Neck is supple. Pupils reactive. Nostrils clear. Oral cavity is moist. Ears reveal no drainage. Neck reveals no JVD, carotid bruits, or thyromegaly. CHEST EXAMINATION: Trachea is central. Symmetrical expansion. Lung wilcox clear to auscultation and percussion. CARDIAC: Normal S1, S2 with no gallops. No murmurs ABDOMEN: Soft. Bowel sounds normal. No organomegaly. No abdominal bruits. Extremities: reveal no edema. No clubbing or cyanosis Neurologically awake, alert, oriented x3 with well-coordinated movements. No focal deficits noted Skin: No rash or skin lesions. Psychiatric: Coperative. Nonsuicidal Musculoskeletal: No joint swelling or deformity. Normal range of motion. - Labs CBC & Chem 7: 12/29/19 05:56 12/29/19 05:56 Labs: Abnormal Lab Results - Last 24 Hours (Table) 12/29/19 12/29/19 Range/Units 05:56 05:56 WBC 13.7 H (3.8-10.6) k/uL Hct 47.5 H (34.0-46.0) % Neutrophils # 8.8 H (1.3-7.7) k/uL Chloride 109 H (98-107) mmol/L Glucose 119 H (74-99) mg/dL Assessment and Plan Assessment: Acute inferior wall NM. Status post cardiac catheterization and stent placement Mild leukocytosis likely reactive. Hypertension newly diagnosed Morbid obesity BMI 43.1 DVT prophylaxis Plan: Patient will be continued aspirin, atorvastatin, metoprolol, lisinopril and Brilinta. Continue to monitor blood pressure and follow-up 2D echocardiogram. Cardiology on board. Further recommendations based on the clinical course. Time with Patient: Greater than 30
--- NOTE | 2020-01-17 20:23 | P.DS ---
Providers Date of admission: 12/27/19 20:48 Expected date of discharge: 12/30/19 Attending physician: Nelson Kearney Consults: 12/27/19 20:47 Consult Physician Urgent Consulting Provider: Mina Chatterjee Consult Reason/Comments: STEMI Do you want consulting provider notified?: Already Contacted 12/27/19 22:05 Consult Physician Routine Consulting Provider: Mina Chatterjee Consult Reason/Comments: Post Interventional patient Do you want consulting provider notified?: Already Contacted Primary care physician: Stated None Hospital Course: Discharge diagnosis Acute inferior wall ID. Status post cardiac catheterization and stent placement Mild leukocytosis likely reactive. Hypertension newly diagnosed Morbid obesity BMI 43.1 DVT prophylaxis Hospital course Patient is a 59-year-old female without significant past medical history presents to ER with complaints of chest pain started around 5 PM yesterday. 10 out of 10 in severity mid retrosternal region with radiation to both arms. Patient also felt dizzy and and was also short of breath.. Denied any headache. No nausea vomiting or diaphoresis. No orthopnea no PND. Denied any exertional short of breath. Patient presents to ER and was found to have ST elevated ID. Patient was taken to cardiac catheterization. Patient underwent stent placement. Currently sitting in the chair comfortably. No complaints of chest pain or shortness of breath. Tolerating oral diet. Laboratory data showed WBC 14.5, hemoglobin 15.1, platelets 265 Other laboratory data reviewed negative. LDL 120 Initial troponin is 0.034, went up to 50.0 and 53.0 EKG showed sinus rhythm with marked sinus arrhythmia with ST elevation 2, 3 and aVF. 12/29/2019 Patient is currently lying in the bed comfortably. Blood pressure is better controlled today. Denied any complaints of chest pain or shortness of breath. Patient was hypotensive today and lisinopril dosing has been reduced. No dizziness or lightheadedness. Tolerating oral diet. No arrhythmias noted overnight. Anticipate discharge in the next 24 hours with more clinical improvement. 12/30/2019 Patient is currently lying in bed comfortably. Patient is anxious to be discharged home today. No complaints of chest pain or shortness of. No headache or dizziness or lightheadedness. No palpitations. Currently maintaining sinus rhythm. 2D echocardiogram showed ejection fraction 45% with mild tricuspid regurgitation. Otherwise no significant valvular abnormalities are noted. Cleared from cardiology standpoint. Patient is being discharged home today. Patient will be continued aspirin, atorvastatin, metoprolol, lisinopril and Brilinta. PHYSICAL EXAMINATION: Patient is lying in the bed comfortably, no acute distress, awake alert and oriented.. HEENT: Normocephalic. Neck is supple. Pupils reactive. Nostrils clear. Oral cavity is moist. Ears reveal no drainage. Neck reveals no JVD, carotid bruits, or thyromegaly. CHEST EXAMINATION: Trachea is central. Symmetrical expansion. Lung wilcox clear to auscultation and percussion. CARDIAC: Normal S1, S2 with no gallops. No murmurs ABDOMEN: Soft. Bowel sounds normal. No organomegaly. No abdominal bruits. Extremities: reveal no edema. No clubbing or cyanosis Neurologically awake, alert, oriented x3 with well-coordinated movements. No focal deficits noted Skin: No rash or skin lesions. Psychiatric: Coperative. Nonsuicidal Musculoskeletal: No joint swelling or deformity. Normal range of motion. Vital Signs Temp 98 F 12/30/19 04:00 Pulse 66 12/29/19 16:11 Resp 20 12/30/19 04:00 BP 119/77 12/30/19 04:00 Pulse Ox 99 12/30/19 04:00 Intake & Output 12/29/19 12/30/19 12/30/19 18:59 06:59 18:59 Intake Total 120 Output Total 350 Balance -350 120 Weight 119.4 kg Intake: Oral 120 Output: Urine 350 Other: Voiding Method Toilet Toilet # Voids 2 Patient Condition at Discharge: Fair Plan - Discharge Summary New Discharge Prescriptions: New Aspirin 81 mg PO DAILY #30 chew Ticagrelor [Brilinta] 90 mg PO BID #60 tab Atorvastatin [Lipitor] 80 mg PO HS #30 tab Metoprolol Tartrate [Lopressor] 50 mg PO BID #60 tab Nitroglycerin Sl Tabs [Nitrostat] 0.4 mg SUBLINGUAL Q5M PRN #30 tab PRN Reason: Chest Pain Lisinopril [Zestril] 10 mg PO DAILY #30 tab Continue Acetaminophen/Diphenhydramine [Tylenol PM 500-25mg] 1 tab PO HS Discontinued Ibuprofen [Advil] 400 mg PO ONCE PRN PRN Reason: Chest Pain Discharge Medication List Acetaminophen/Diphenhydramine [Tylenol PM 500-25mg] 1 tab PO HS 12/28/19 [History] Aspirin 81 mg PO DAILY #30 chew 12/30/19 [Rx] Atorvastatin [Lipitor] 80 mg PO HS #30 tab 12/30/19 [Rx] Lisinopril [Zestril] 10 mg PO DAILY #30 tab 12/30/19 [Rx] Metoprolol Tartrate [Lopressor] 50 mg PO BID #60 tab 12/30/19 [Rx] Nitroglycerin Sl Tabs [Nitrostat] 0.4 mg SUBLINGUAL Q5M PRN #30 tab 12/30/19 [Rx] Ticagrelor [Brilinta] 90 mg PO BID #60 tab 12/30/19 [Rx] Follow up Appointment(s)/Referral(s): Sal Rider MD [STAFF PHYSICIAN] - 1 Week (Please call office to make an appointment; office closed at time of discharge ) None,Stated [Primary Care Provider] - 1-2 days Patient Instructions/Handouts: Heart Attack (DC), Heart Healthy Diet (DC) Discharge Disposition: HOME SELF-CARE
== END 2019-12-30 15:09 | disposition home or self-care (01) | DRG 247 ==
LOC: EC 20:30 → 2SICU 20:48 → 3SCARD 12-29 18:12
PROVIDERS: ADMIT Hospitalist; ATTEND Hospitalist
PROC: 02C03ZZ Extirpation of Matter from Coronary Artery, One Artery, Percutaneous Approach (ICD-10-PCS; principal; 2019-12-27 20:52)
PROC: 027036Z Dilation of Coronary Artery, One Artery with Three Drug-eluting Intraluminal Devices, Percutaneous Approach (ICD-10-PCS; principal; 2019-12-27 20:52)
PROC: B2111ZZ Fluoroscopy of Multiple Coronary Arteries using Low Osmolar Contrast (ICD-10-PCS; principal; 2019-12-27 20:52)
PROC: 4A023N7 Measurement of Cardiac Sampling and Pressure, Left Heart, Percutaneous Approach (ICD-10-PCS; principal; 2019-12-27 20:52)
DX: I21.19 ST elevation (STEMI) myocardial infarction involving other coronary artery of inferior wall (principal); Z68.41 Body mass index [BMI] 40.0-44.9, adult; I11.9 Hypertensive heart disease without heart failure; D72.829 Elevated white blood cell count, unspecified; E66.01 Morbid (severe) obesity due to excess calories; I25.10 Atherosclerotic heart disease of native coronary artery without angina pectoris; Z11.59 Encounter for screening for other viral diseases; R00.0 Tachycardia, unspecified; E78.00 Pure hypercholesterolemia, unspecified; E78.5 Hyperlipidemia, unspecified; Z79.899 Other long term (current) drug therapy; Z71.3 Dietary counseling and surveillance; Z95.5 Presence of coronary angioplasty implant and graft; Z82.49 Family history of ischemic heart disease and other diseases of the circulatory system; Z80.0 Family history of malignant neoplasm of digestive organs; Z80.51 Family history of malignant neoplasm of kidney; Z80.1 Family history of malignant neoplasm of trachea, bronchus and lung
CPT/HCPCS: 36415; 71046; 80048; 80053; 80061; 82550; 82553; 83036; 83735; 84484; 85025; 85027; 85347; 85610; 85730; 93005; 93306; 93458; 96374; 96375; 99285

== ENCOUNTER → 2020-03-18 | Outpatient (CLI) | payer BC ==
[2020-03-18 16:29] LABS: Albumin 4.6 g/dL (3.80-4.90); Albumin/Globulin Ratio 1.64 (1.60-3.17); Anion Gap 7.6 mmol/L (4.00-12.00); BUN/Creat Ratio 11.11 Ratio (12.00-20.00); Calcium 9.9 mg/dL (8.7-10.3); Carbon Dioxide 28.4 mmol/L (21.6-31.8); Chol/HDL Ratio 2.35; Globulin 2.8 g/dL (1.6-3.3); Potassium 4.6 mmol/L (3.5-5.5); Total Bilirubin 0.8 mg/dL (0.3-1.2); Total Protein 7.4 g/dL (6.2-8.2)
== END | disposition home or self-care (01) ==
LOC: LABWHC1 08:58
PROVIDERS: ATTEND Internal Medicine Interventional Cardiology
DX: E78.2 Mixed hyperlipidemia (principal)
CPT/HCPCS: 36415; 80053; 80061

== ENCOUNTER → 2020-07-22 | Outpatient (CLI) | payer BC ==
[2020-07-22 14:57] LABS: African American GFR (CKD) 92.2 (60.0-200.0); Albumin 4.5 g/dL (3.80-4.90); Albumin/Globulin Ratio 1.67 (1.60-3.17); BUN/Creat Ratio 11.25 Ratio (12.00-20.00); Calcium 9.7 mg/dL (8.7-10.3); Chol/HDL Ratio 2.33; Globulin 2.7 g/dL (1.6-3.3); LDL Cholesterol,Calculated 37.6 mg/dL (0.0-131.0); Non-African American GFR(CKD) 79.6 (60.0-200.0); Potassium 4.2 mmol/L (3.5-5.5); Total Bilirubin 0.7 mg/dL (0.2-1.2); Total Protein 7.2 g/dL (6.2-8.2); VLDL Calculation 22.4 mg/dL (5.00-40.00)
== END | disposition home or self-care (01) ==
LOC: LABWHC1 08:10
PROVIDERS: ATTEND Internal Medicine Interventional Cardiology
DX: E78.2 Mixed hyperlipidemia (principal)
CPT/HCPCS: 36415; 80053; 80061

== ENCOUNTER 2020-08-17 07:40 | Inpatient (IN) | payer BC ==
[2020-08-17] MEDS ORDERED: ASPIRIN 81 MG PO STA (07:55)
[2020-08-17] MEDS ORDERED: LABETALOL 5 MG/ML VIAL MDV IVP STA (07:56)
--- NOTE | 2020-08-17 08:04 | ED ---
Chest Pain HPI - General Chief Complaint: Chest Pain Stated Complaint: Chest Pain Time Seen by Provider: 08/17/20 07:50 Source: patient, RN notes reviewed Mode of arrival: ambulatory Limitations: no limitations - History of Present Illness Initial Comments: This a 60-year-old female presents emergency Department chief complaint of chest pain. Patient states she's been having on and off symptoms but states it results. Patient states morning and has not resolved. Patient states she became very diaphoretic with the pain she felt initially short of breath does not have a current shortness of breath. No leg pain or leg swelling. Patient had a myocardial infarction in January of last year. Patient states she's been taken her medications. Last 2 weeks she's been having some on-and-off symptoms recently had an echo but has not had a follow-up results. She states her branch mechanic is Dr. christiane gorman. Patient is found to be hypertensive though she s tates she has not taken her medications she states she normally takes them at 9:00. Patient is on metoprolol, lisinopril, purulent. Patient denies any fevers or chills no current headache abdominal pain nausea vomiting. - Related Data Home Medications Medication Instructions Recorded Confirmed Acetaminophen/Diphenhydramine 1 tab PO HS 12/28/19 08/17/20 [Tylenol PM 500-25mg] Inulin/Chromium Picolinate [Fiber 1 tab PO DAILY 08/17/20 08/17/20 Gummies Chew] Previous Rx's Medication Instructions Recorded Aspirin 81 mg PO DAILY #30 chew 12/30/19 Atorvastatin [Lipitor] 80 mg PO HS #30 tab 12/30/19 Metoprolol Tartrate [Lopressor] 50 mg PO BID #60 tab 12/30/19 Nitroglycerin Sl Tabs [Nitrostat] 0.4 mg SUBLINGUAL Q5M PRN #30 tab 12/30/19 Ticagrelor [Brilinta] 90 mg PO BID #60 tab 12/30/19 lisinopriL [Zestril] 10 mg PO DAILY #30 tab 12/30/19 Allergies Allergy/AdvReac Type Severity Reaction Status Date / Time No Known Allergies Allergy Verified 08/17/20 08:48 Review of Systems ROS Statement: Those systems with pertinent positive or pertinent negative responses have been documented in the HPI. ROS Other: All systems not noted in ROS Statement are negative. EKG Findings - EKG Comments: EKG Findings:: EKG performed at 7:47 normal sinus rhythm rate of 85 MD 144 QRS 92 QT/QTC 378/[address] depression. Past Medical History Past Medical History: Chest Pain / Angina, Myocardial Infarction ([place]) History of Any Multi-Drug Resistant Organisms: None Reported Past Surgical History: Heart Catheterization With Stent Past Anesthesia/Blood Transfusion Reactions: No Reported Reaction Date of Last Stent Placement:: 12/27/19 Past Psychological History: No Psychological Hx Reported Smoking Status: Never smoker Past Alcohol Use History: None Reported Past Drug Use History: None Reported - Past Family History Father Family Medical History: Cancer, Hypertension Additional Family Medical History / Comment(s): Pancreatic cancer, Kidney cancer Mother Family Medical History: Cancer Additional Family Medical History / Comment(s): Lung cancer General Exam Limitations: no limitations General appearance: alert, in no apparent distress Head exam: Present: atraumatic, normocephalic, normal inspection Eye exam: Present: normal appearance, PERRL, EOMI. Absent: scleral icterus, conjunctival injection, periorbital swelling ENT exam: Present: normal exam, mucous membranes moist Neck exam: Present: normal inspection, full ROM. Absent: tenderness, meningismus, lymphadenopathy Respiratory exam: Present: normal lung sounds bilaterally, chest wall tenderness. Absent: respiratory distress, wheezes, rales, rhonchi, stridor Cardiovascular Exam: Present: regular rate, normal rhythm, normal heart sounds. Absent: systolic murmur, diastolic murmur, rubs, gallop, clicks GI/Abdominal exam: Present: soft, normal bowel sounds. Absent: distended, tenderness, guarding, rebound, rigid Extremities exam: Present: other (Lower extremity pulses equal bilaterally). Absent: pedal edema, calf tenderness Course Vital Signs 08/17/20 08/17/20 08/17/20 07:48 08:12 08:24 Temperature 98.2 F Pulse Rate 90 Respiratory 18 Rate Blood Pressure 220/118 182/109 149/116 O2 Sat by Pulse 98 Oximetry 08/17/20 08:40 Temperature Pulse Rate Respiratory Rate Blood Pressure 154/98 O2 Sat by Pulse Oximetry - Reevaluation(s) Reevaluation #1: 08/17/20 08:03 Vitals reviewed, patient was hypertensive is not taking medications, labetalol was ordered. Chest Pain MDM - MDM 60-year-old presented for chest pain. Patient's initial workup is negative including troponin no significant EKG changes chest x-ray unremarkable. Patient be admitted for unstable angina. Patient was started on heparin and will have cardiology evaluation. Patient had recent echo and cardiology will follow-up on echo. Disposition Clinical Impression: Chest pain Disposition: ADMITTED IP TO THIS HOSP Condition: Fair Referrals: None,Stated [Primary Care Provider] - 1-2 days
[2020-08-17 08:17] LABS: Basophils # (A) 0.1 k/uL (0-0.2); Basophils % (A) 1 %; Eosinophils # (A) 0.4 k/uL (0-0.7); Eosinophils % (A) 3 %; HCT 49.6 % (34.0-46.0); HGB 16.6 gm/dL (11.4-16.0); Lymphocytes # (A) 4.2 k/uL (1.0-4.8); Lymphocytes % (A) 33 %; MCH 31.5 pg (25.0-35.0); MCHC 33.4 g/dL (31.0-37.0); MCV 94.1 fL (80.0-100.0); Mean Platelet Volume 7.7; Monocytes # (A) 0.6 k/uL (0-1.0); Monocytes % (A) 5 %; Neutrophils # (A) 7.2 k/uL (1.3-7.7); Neutrophils % (A) 57 %; Platelet Count 236 k/uL (150-450); RBC 5.27 m/uL (3.80-5.40); RDW 12.2 % (11.5-15.5); WBC 12.6 k/uL (3.8-10.6)
[2020-08-17 08:26] LABS: ALT 24 U/L (4-34); African American GFR (CKD) >90 (>60 ml/min/1.73 sqM); Albumin 4.7 g/dL (3.5-5.0); Anion Gap 11 mmol/L; Blood Urea Nitrogen 9 mg/dL (7-17); Calcium 9.6 mg/dL (8.4-10.2); Carbon Dioxide 23 mmol/L (22-30); Chloride 107 mmol/L (98-107); Glucose 135 mg/dL (74-99); Lipase 298 U/L (23-300); Non-African American GFR(CKD) >90 (>60 ml/min/1.73 sqM); Sodium 141 mmol/L (137-145); Total Bilirubin 0.9 mg/dL (0.2-1.3); Total Protein 8.5 g/dL (6.3-8.2)
[2020-08-17 08:31] LABS: AST 40 U/L (14-36); Alkaline Phosphatase 116 U/L (38-126); Magnesium 2.1 mg/dL (1.6-2.3); Potassium 5.4 mmol/L (3.5-5.1)
[2020-08-17 08:38] LABS: INR 1.9 (<1.2); Partial Thromboplastin Time 27.5 sec (22.0-30.0); Prothrombin Time 18.6 sec (9.0-12.0)
--- NOTE | 2020-08-17 08:52 | XR ---
EXAMINATION TYPE: XR chest 2V DATE OF EXAM: 08/17/2020 COMPARISON: 12/27/2019 HISTORY: Shortness of breath TECHNIQUE: Frontal and lateral views of the chest are obtained. FINDINGS: Scattered senescent parenchymal changes noted. Hyperinflation compatible with COPD. No evidence for infiltrate. No evidence for atelectasis. Heart size is stable. Mediastinal structures are stable and grossly unremarkable. No evidence for hilar prominence. Degenerative changes dorsal spine. IMPRESSION: 1. No evidence for acute pulmonary disease.
[2020-08-17] MEDS ORDERED: HEPARIN SODIUM,PORCINE 5,000 UNIT/ML 1 ML VIAL IV PRN (09:11)
[2020-08-17] MEDS ORDERED: HEPARIN SODIUM,PORCINE 5,000 UNIT/ML 1 ML VIAL IV ONE (09:11)
[2020-08-17] MEDS ORDERED: NITROGLYCERIN SL TABS 0.4 MG TAB SUBLINGUAL PRN (09:11)
[2020-08-17] MEDS: HEPARIN SOD,PORK IN 0.45% NACL 25,000 UNIT in 0.45% NACL 1 250ML.BAG IV SCH (09:47)
--- NOTE | 2020-08-17 12:46 | P.CRDCN ---
History of Present Illness Consult date: 08/17/20 History of present illness: CHIEF COMPLAINT: Chest pain HISTORY OF PRESENT ILLNESS: This is a 60-year-old female with a past medical history significant for coronary artery disease with previous stenting in December 2019 with stent placement 3 to the RCA, hypertension, hyperlipidemia, and obesity. Patient follows in the office with Dr. Rider. We have been asked to see the patient in consultation for chest pain. Patient states she has been having chest pressure on and off for the past week. She states yesterday while lying in bed she began having severe chest pressure. She reports feeling mildly short of breath. She states that she felt clammy but denied diaphoresis. She reports feeling nauseated without emesis. She states the pain radiated to her back. She states that she felt these episodes of pain 3-4 times throughout the night. She reports taking a nitro this morning which relieved her pain initially but then about an hour later he returned so she came to the emergency room for further evaluation. Patient's blood pressure was found to be significantly elevated in the emergency room however the patient is extremely anxious and tearful at the time of examination. Patient states her blood pressure usually is within normal range. Echocardiogram performed in the office on 07/16/2020 revealed ejection fraction 50%, mild mitral regurgitation, and mild tricuspid regurgitation. DIAGNOSTICS: EKG reveals sinus mechanism with ST depression in inferior and anterior leads. Previous EKG from cardiology office in January [address] depression Chest xray negative for acute process Laboratory data: WBC 12.6. Hemoglobin 16.6. Platelet count 236. Sodium 141. Potassium 5.4. BUN 9. Creatinine 0.66. Magnesium 2.1. Troponin negative 1. BNP 255. Current home cardiac medications include lisinopril 10 mg daily, Proventil 90 mg twice a day, metoprolol 50 mg twice a day, Lipitor 80 mg daily, and aspirin 81 mg daily REVIEW OF SYSTEMS: At the time of my exam: CONSTITUTIONAL: Denies fever or chills. HEENT: Denies blurred vision, vision changes, or eye pain. Denies hemoptysis CARDIOVASCULAR: Denies chest pain, orthopnea, PND or palpitations RESPIRATORY: No shortness of breath. GASTROINTESTINAL: Denies abdominal pain. Denies nausea or vomiting. HEMATOLOGIC: Denies bleeding disorders. GENITOURINARY: Denies any blood in urine. SKIN: Denies pruitis. Denies rash. PHYSICAL EXAM: VITAL SIGNS: Reviewed. GENERAL: Well-developed in no acute distress. HEENT: Head is normocephalic. Pupils are equal, round. Sclerae anicteric. Mucous membranes of the mouth are moist. Neck supple. No JVD or thyromegaly LUNGS: Respirations even and unlabored. Lungs essentially clear to auscultation bilaterally. HEART: Regular rate and rhythm. S1 and S2 heard. ABDOMEN: Soft. Nondistended. Nontender. EXTREMITIES: Normal range of motion. No clubbing or cyanosis. Peripheral pulses intact. No lower extremity edema NEUROLOGIC: Awake and alert. Oriented x 3. ASSESSMENT: Chest pain Coronary artery disease with previous stent placement x 3 to RCAJanuary 2020 Hypertension Hyperlipidemia Obesity: BMI 39.9 Anxiety PLAN: Continue IV heparin Resume home cardiac medications Blood pressure elevated, however patient currently very anxious and tearful at times during examination. Continue to monitor blood pressure and will make adjustments if necessary Continue to trend troponin levels If troponins negative, patient will undergo stress echo tomorrow Further recommendations pending patient course Nurse practitioner note has been reviewed by physician. Signing provider agrees with the documented findings, assessment, and plan of care. Past Medical History Past Medical History: Chest Pain / Angina, Myocardial Infarction ([place]) History of Any Multi-Drug Resistant Organisms: None Reported Past Surgical History: Heart Catheterization With Stent Past Anesthesia/Blood Transfusion Reactions: No Reported Reaction Date of Last Stent Placement:: 12/27/19 Past Psychological History: No Psychological Hx Reported Smoking Status: Never smoker Past Alcohol Use History: None Reported Past Drug Use History: None Reported - Past Family History Father Family Medical History: Cancer, Hypertension Additional Family Medical History / Comment(s): Pancreatic cancer, Kidney cancer Mother Family Medical History: Cancer Additional Family Medical History / Comment(s): Lung cancer Medications and Allergies Home Medications Medication Instructions Recorded Confirmed Type Acetaminophen/Diphenhydramine 1 tab PO HS 12/28/19 08/17/20 History [Tylenol PM 500-25mg] Aspirin 81 mg PO DAILY #30 chew 12/30/19 08/17/20 Rx Atorvastatin [Lipitor] 80 mg PO HS #30 tab 12/30/19 08/17/20 Rx Metoprolol Tartrate [Lopressor] 50 mg PO BID #60 tab 12/30/19 08/17/20 Rx Nitroglycerin Sl Tabs [Nitrostat] 0.4 mg SUBLINGUAL Q5M PRN #30 tab 12/30/19 08/17/20 Rx Ticagrelor [Brilinta] 90 mg PO BID #60 tab 12/30/19 08/17/20 Rx lisinopriL [Zestril] 10 mg PO DAILY #30 tab 12/30/19 08/17/20 Rx Inulin/Chromium Picolinate [Fiber 1 tab PO DAILY 08/17/20 08/17/20 History Gummies Chew] Allergies Allergy/AdvReac Type Severity Reaction Status Date / Time No Known Allergies Allergy Verified 08/17/20 08:48 Physical Exam Vitals: Vital Signs Temp Pulse Pulse Resp BP BP Pulse Ox 08/17/20 10:34 97.4 F L 84 20 191/89 98 08/17/20 09:50 98.7 F 76 18 153/95 98 08/17/20 08:40 154/98 08/17/20 08:24 149/116 08/17/20 08:12 182/109 08/17/20 07:48 98.2 F 90 18 220/118 98 Intake and Output 08/16/20 08/17/20 08/17/20 22:59 06:59 14:59 Other: Weight 115.666 kg Results 08/17/20 07:56 08/17/20 07:56 Cardiac Enzymes 08/17/20 08/17/20 08/17/20 Range/Units 07:56 07:56 10:37 AST 40 H (14-36) U/L Troponin I <0.012 0.017 (0.000-0.034) ng/mL Coagulation 08/17/20 Range/Units 07:56 PT 18.6 H (9.0-12.0) sec APTT 27.5 (22.0-30.0) sec CBC 08/17/20 Range/Units 07:56 WBC 12.6 H (3.8-10.6) k/uL RBC 5.27 (3.80-5.40) m/uL Hgb 16.6 H (11.4-16.0) gm/dL Hct 49.6 H (34.0-46.0) % Plt Count 236 (150-450) k/uL Comprehensive Metabolic Panel 08/17/20 Range/Units 07:56 Sodium 141 (137-145) mmol/L Potassium 5.4 H (3.5-5.1) mmol/L Chloride 107 (98-107) mmol/L Carbon Dioxide 23 (22-30) mmol/L BUN 9 (7-17) mg/dL Creatinine 0.66 (0.52-1.04) mg/dL Glucose 135 H (74-99) mg/dL Calcium 9.6 (8.4-10.2) mg/dL AST 40 H (14-36) U/L ALT 24 (4-34) U/L Alkaline Phosphatase 116 (38-126) U/L Total Protein 8.5 H (6.3-8.2) g/dL Albumin 4.7 (3.5-5.0) g/dL Current Medications Generic Name Dose Route Start Last Admin Trade Name Freq PRN Reason Stop Dose Admin Alprazolam 0.25 mg 08/17/20 12:12 Alprazolam 0.25 Mg Tab PO TID PRN Agitation or Acute Anxiety Aspirin 81 mg 08/18/20 09:00 Aspirin 81 Mg PO DAILY [facility] Atorvastatin Calcium 80 mg 08/17/20 21:00 Atorvastatin 80 Mg Tab PO HS [facility] Heparin Sodium (Porcine) 0 unit 08/17/20 09:11 Heparin Sodium,Porcine 5,000 Unit/Ml 1 Ml Vial IV Q6HR PRN Low PTT Protocol Heparin Sodium/Sodium Chloride 250 mls @ 9.999 mls/hr 08/17/20 09:15 08/17/20 09:47 25,000 unit/ Sodium Chloride IV 8.645 units/kg/hr .Q24H YADI 9.999 mls/hr Administration Protocol 8.645 UNITS/KG/HR Lisinopril 10 mg 08/17/20 11:15 Lisinopril 10 Mg Tab PO DAILY [facility] Metoprolol Tartrate 50 mg 08/17/20 11:15 Metoprolol Tartrate 50 Mg Tab PO BID [facility] Nitroglycerin 0.4 mg 08/17/20 09:11 Nitroglycerin Sl Tabs 0.4 Mg Tab SUBLINGUAL Q5M PRN Chest Pain Intake and Output 08/16/20 08/17/20 08/17/20 22:59 06:59 14:59 Other: Weight 115.666 kg Patient Weight 08/18/20 06:59 Weight 115.666 kg 08/17/20 07:56 08/17/20 07:56
[2020-08-17] MEDS: METOPROLOL TARTRATE 50 MG TAB PO SCH ×2 (12:56→20:15)
[2020-08-17] MEDS: ALPRAZolam 0.25 MG TAB PO PRN ×2 (12:56→21:15)
[2020-08-17] MEDS: lisinopriL 10 MG TAB PO SCH (12:57)
[2020-08-17] MEDS ORDERED: ACETAMINOPHEN TAB 500 MG TAB PO PRN (14:58)
[2020-08-17] MEDS ORDERED: TEMAZEPAM 15 MG CAP PO PRN (14:58)
[2020-08-17] MEDS ORDERED: HYDROcodone/APAP 5-325MG 1 EACH TAB PO PRN (14:58)
--- NOTE | 2020-08-17 16:33 | HP ---
HISTORY AND PHYSICAL DATE OF SERVICE: 08/17/2020. CHIEF COMPLAINT: Chest pain. HISTORY OF PRESENT ILLNESS: This 60-year-old woman with a past medical history of multiple medical problems including chest pain, history of myocardial infarction, CAD stent, not being followed by primary physician in the outpatient setting was complaining of chest pain. The patient felt symptoms for the past several days, felt in the anterior part of the chest associated with some sweating and some shortness of breath and patient is concerned because it is similar to the pain related to the myocardial infarction patient had previously and the patient came to [facility] and admitted for further evaluation and treatment. There is no history of fever, rigors. No headache, loss of consciousness, seizures at this time. PAST MEDICAL HISTORY: Past medical history of chest pain, myocardial infarction, CAD/stent. MEDICATIONS: Medications prior to admission include home medications are: Fiber, Nitrostat Zestril, Brilinta, Lopressor, Lipitor, aspirin, Tylenol p.m. ALLERGIES: None. FAMILY HISTORY: History of cancer, hypertension, pancreatic cancer, kidney cancer. SOCIAL HISTORY: No history of smoking. No history of alcohol. REVIEW OF SYSTEMS: ENT: No diminished vision. No diminished hearing. CARDIO system: As mentioned earlier. RESPIRATORY: As mentioned earlier. GI no nausea or vomiting. : No dysuria. NERVOUS SYSTEM: No numbness, weakness. ALLERGY/IMMUNOLOGY: No asthma or hayfever. MUSCULOSKELETAL as mentioned earlier. HEMATOLOGY/ONCOLOGY: No history of anemia. ENDOCRINE: No history of diabetes or hypothyroidism. CONSTITUTIONAL: As mentioned earlier. DERMATOLOGY negative. RHEUMATOLOGY as mentioned earlier. PHYSICAL EXAMINATION: Alert and oriented x3. Pulse is 74, blood pressure 130/77, respiration 18, temperature 97.2, pulse ox 98% on room air. HEENT is conjunctivae normal. NECK: No JVD. CARDIOVASCULAR: S1, S2 muffled. RESPIRATORY: Breath sounds diminished in the bases. No rhonchi. No crackles. ABDOMEN: Soft, nontender. LEGS are no edema. No swelling. NERVOUS SYSTEM: Higher functions as mentioned earlier. Moves all four limbs. No focal deficits. LYMPHATICS: No lymph nodes palpable in the neck, axillae or groin. SKIN: No ulcer, no rash and no bleeding. JOINTS: No active deforming arthropathy. LAB STUDIES: WBC 12.6 and INR 1.9. Sodium 139, potassium 5.5. Troponin 0.06. ASSESSMENT: 1. Chest pain possible acute wox-ZW-nfgyxvo-elevation myocardial infarction. Troponin 0.063. 2. Hyperkalemia. 3. Increased WBC. 4. Polycythemia, mild. 5. History of chest pain. 6. History of myocardial infarction. 7. History of coronary artery disease/stent. 8. Obesity with body mass of 39.8. RECOMMENDATIONS AND DISCUSSION: In this 60-year-old woman who presented with multiple complex medical issues, we will monitor the patient closely, continue the current medications, management, beta blockers, antiplatelet agents. Cardiology consultation. Resume the home medications. Stress test or cardiac cath. Guarded prognosis. Further recommendations to follow. MMODL / IJN: [id number] /
[2020-08-17] MEDS: ATORVASTATIN 80 MG TAB PO SCH (20:15)
[2020-08-18] MEDS: PANTOPRAZOLE 40 MG TABLET PO SCH (06:38)
[2020-08-18 07:29] LABS: Basophils # (A) 0.1 k/uL (0-0.2); Basophils % (A) 1 %; Eosinophils # (A) 0.2 k/uL (0-0.7); Eosinophils % (A) 3 %; HGB 15.3 gm/dL (11.4-16.0); Lymphocytes # (A) 3.1 k/uL (1.0-4.8); Lymphocytes % (A) 32 %; MCH 31.2 pg (25.0-35.0); MCHC 32.5 g/dL (31.0-37.0); MCV 95.9 fL (80.0-100.0); Mean Platelet Volume 8.1; Monocytes # (A) 0.6 k/uL (0-1.0); Monocytes % (A) 6 %; Neutrophils # (A) 5.7 k/uL (1.3-7.7); Neutrophils % (A) 58 %; Platelet Count 234 k/uL (150-450); RBC 4.89 m/uL (3.80-5.40); RDW 12.7 % (11.5-15.5); WBC 9.8 k/uL (3.8-10.6)
[2020-08-18] MEDS ORDERED: ALPRAZolam 0.25 MG TAB PO PRN (07:32)
[2020-08-18] MEDS ORDERED: SODIUM CHLORIDE 0.9% 1,000 ML in EMPTY BAG 1 BAG IV ONE (07:32)
[2020-08-18] MEDS ORDERED: ALPRAZolam 0.5 MG TAB PO PRN (07:32)
[2020-08-18] MEDS ORDERED: NITROGLYCERIN SL TABS 0.4 MG TAB SUBLINGUAL PRN ×2 (07:32→10:48)
[2020-08-18] MEDS ORDERED: ASPIRIN 325 MG TAB PO STA (07:32)
[2020-08-18] MEDS ORDERED: ATORVASTATIN 80 MG TAB PO STA (07:32)
[2020-08-18] MEDS: HEPARIN SOD,PORK IN 0.45% NACL 25,000 UNIT in 0.45% NACL 1 250ML.BAG IV SCH (08:31)
[2020-08-18] MEDS: ASPIRIN 81 MG PO SCH (08:35)
[2020-08-18 08:36] LABS: African American GFR (CKD) >90 (>60 ml/min/1.73 sqM); Anion Gap 11 mmol/L; Blood Urea Nitrogen 9 mg/dL (7-17); Calcium 9.2 mg/dL (8.4-10.2); Carbon Dioxide 22 mmol/L (22-30); Chloride 107 mmol/L (98-107); Cholesterol 114 mg/dL (<200); Glucose 125 mg/dL (74-99); HDL Cholesterol 57 mg/dL (40-60); LDL Cholesterol,Calculated 40 mg/dL (0-99); Non-African American GFR(CKD) >90 (>60 ml/min/1.73 sqM); Sodium 140 mmol/L (137-145); Triglycerides 83 mg/dL (<150)
[2020-08-18] MEDS: METOPROLOL TARTRATE 50 MG TAB PO SCH ×2 (08:46→20:05)
[2020-08-18] MEDS: lisinopriL 10 MG TAB PO SCH (08:46)
[2020-08-18] MEDS ORDERED: ASPIRIN 325 MG TAB PO SCH (09:00)
[2020-08-18] MEDS ORDERED: fentaNYL (PF) 50 MCG/ML 2 ML AMP IV ONE (09:35)
[2020-08-18] MEDS ORDERED: IV FLUID CONTINUATION 950 ML IV ONE (09:35)
[2020-08-18] MEDS: LIDOCAINE 1% INJ 10MG/ML (20 ML MDV) SQ ONE ×2 (09:36→09:53)
[2020-08-18] MEDS ORDERED: MIDAZOLAM 2 MG/2 ML VIAL IVP ONE (09:38)
[2020-08-18] MEDS ORDERED: HEPARIN SODIUM 1,000 UN/ML (10ML VL) IV ONE (10:03)
[2020-08-18] MEDS ORDERED: TICAGRELOR 90 MG TAB PO ONE (10:07)
[2020-08-18] MEDS ORDERED: NITROGLYCERIN 1000MCG/10ML SYRINGE INTRACORON ONE (10:16)
[2020-08-18] MEDS ORDERED: IOPAMIDOL-370 125ML BTL INJ ONE (10:17)
[2020-08-18] MEDS ORDERED: IOPAMIDOL-370 100ML BTL INJ ONE (10:43)
[2020-08-18] MEDS ORDERED: MAG HYDROX/AL HYDROX/SIMETH 30 ML CUP PO PRN (10:48)
[2020-08-18] MEDS ORDERED: RX INFO: IV CONTRAST WAS GIVEN 1 EACH MISC MISCELLANE PRN (10:48)
[2020-08-18] MEDS ORDERED: ATROPINE SULFATE 0.1 MG/ML 10ML SYRINGE IV PRN (10:48)
[2020-08-18] MEDS ORDERED: ZOLPIDEM 5 MG TAB PO PRN (10:48)
[2020-08-18] MEDS ORDERED: SODIUM CHLORIDE 0.9% 1,000 ML IV SCH (11:00)
--- NOTE | 2020-08-18 11:17 | CC ---
CARDIAC CATHETERIZATION REPORT Mrs. Roberts is a 60-year-old female with known history of coronary artery disease who in December of 2019, presented with an inferior wall myocardial infarction underwent stenting of the right coronary artery. She has been doing well until recently when she presented with symptoms of chest discomfort with mild EKG changes inferiorly as well as mild troponin elevation. In view of that, recommendation was made regarding cardiac catheterization. The procedure as well as the risks and the complications were discussed with the patient who is in full understanding and agreement. PROCEDURE: Patient was brought to cytology laboratory manager in a fasting semi-sedated state after receiving fentanyl and Benadryl. Multiple attempts to advance a wire in the right radial artery were unsuccessful at that point. Using Xylocaine anesthesia and Seldinger technique, a 6-Malay sheath was introduced in the right femoral artery. Selective right and left coronary angiography performed using 6-Malay 4 bend right and left Betty catheter. Multiple views of the coronary artery including hemiaxial views were obtained. The right Betty catheter was used to cross the aortic valve. Subsequently, catheters were removed and images were reviewed. FINDINGS: LEFT MAIN: This is a large-sized vessel, bifurcating into left circumflex and left anterior descending artery. Left main coronary artery has no evidence of coronary artery disease. LEFT ANTERIOR DESCENDING ARTERY: This is a large-sized vessel reaching to the apex with a wraparound apex segment giving rise to one moderately-sized diagonal branch. The left anterior descending artery as well as branches have no evidence of obstructive coronary artery disease. LEFT CIRCUMFLEX: This is a nondominant vessel giving rise to a large obtuse marginal branch. The left circumflex proximally at the ostium has a 30% plaque. There is another 30% plaque in the proximal segment of the OM. The rest of the vessel has no high-grade stenosis. RIGHT CORONARY ARTERY: This is a large dominant vessel bifurcating distally PDA and posterolateral segment and branches. The right coronary artery in the proximal segment has an in-stent restenosis of 99%. The rest of the vessel has diffuse intimal disease without any evidence of high-grade stenosis. LEFT VENTRICULOGRAM: Left ventriculogram is not performed. HEMODYNAMICS: There was no gradient across the aortic valve. The left ventricular end-diastolic pressure was 2-6 mmHg. CONCLUSION: 1. Critical in-stent restenosis of the proximal right coronary artery. 2. Mild disease in the left circumflex. RECOMMENDATION: In view of finding anatomy, I recommend proceeding with angioplasty and stenting of the right coronary artery. The procedure as well as the risks and the complications were discussed with the patient who is in full understanding and agreement. KETTY / ROMANN: [id number] /
--- NOTE | 2020-08-18 11:26 | PTCA ---
PERCUTANEOUSTRANS CORORONARY ANGIOGRAPHY Mrs. Roberts is a 60-year-old female with a known history of coronary artery disease who presented with evidence of non STEMI, underwent cardiac catheterization was found to have critical in-stent restenosis of the proximal right coronary artery. In view of that, recommendation was made regarding angioplasty and stenting, the procedure as well as the risks and the complications were discussed with the patient who is in full understanding and agreement. PROCEDURE: A 6-Frisian FR4 guiding catheter was introduced in the system. After cannulating the right coronary ostium, a 0.014 balanced medium weight J-wire was advanced across the lesion, positioned distally then a 2.5 x 12 mm NC Trek balloon was advanced and 2 inflations at 12 atmospheres were done. Following that, the balloon was removed and a 4.0 x 15 mm Xience Debby stent was deployed post dilated at 18 atmospheres. Following that, the balloon was removed and a 4.5 x 15 mm NC Trek balloon was advanced and one inflation at 12 atmospheres was done. Following that, the balloon was removed and an intravascular ultrasound catheter was introduced and measurements were performed that showed the lumen of the vessel being 5 mm in diameter. At that time, the intravascular ultrasound catheter was removed and a 5.0 x 15 mm NC Trek balloon was advanced and one inflation at 14 atmospheres was done. After the last inflation, after appropriate wait, the balloon and the guidewire were withdrawn back in the guiding catheter. Images were obtained and repeated. Those images reveal stable successful stenting. At that point, the guiding catheter, the balloon and the guidewire were removed. The sheath was removed. Hemostasis was obtained with deployment of the Angio-Seal. There was no immediate complication. The patient is returned to her room in stable condition. Of note, the patient received 9000 units of intravenous heparin, her ACT was monitored throughout the procedure and she was continued on Brilinta. She had chest discomfort with the inflation that resolved at the end of the procedure. RESULTS: Successful stenting of the proximal in-stent restenosis with reduction of stenosis from 99% to 0%. RECOMMENDATION: Patient be continued on aspirin, Brilinta, beta ethan, MELANY inhibitor, statin. The importance of dual antiplatelet treatment were discussed with the patient and her family and they are in full understanding and agreement. Duration of sedation is 62 minutes. MMODL / IJN: [id number] /
--- NOTE | 2020-08-18 14:38 | PN ---
PROGRESS NOTE DATE OF SERVICE: 08/18/2020. This 60-year-old woman who was admitted with chest pain, underwent cardiac catheterization and stenting of the proximal in-stent restenosis in the proximal RCA by Cardiology. No chest pain. No palpitations. No fever. PHYSICAL EXAMINATION: The patient is alert and oriented x3. Pulse 66, blood pressure 125/70, respiration 20, temperature normal, pulse ox 98% on room air. HEENT: Conjunctivae normal. NECK: No jugular venous distention. CARDIOVASCULAR: S1, S2 muffled. RESPIRATORY: Breath sounds diminished at the bases. No rhonchi. No crackles. ABDOMEN: Soft, nontender. LEGS: No edema. No swelling. NERVOUS SYSTEM: No focal deficits. LABS: Glucose 124. Other labs are noted. ASSESSMENT: 1. Chest pain, acute cew-HY-oqfedim elevation myocardial infarction, troponin 0.063, status post cardiac catheterization and stenting of the in-stent stenosis of the RCA. 2. Hyperkalemia, improved. 3. Increased WBC. 4. Polycythemia, mild. 5. History of chest pain. 6. History of myocardial infarction. 7. History of coronary artery disease, stent. 8. Obesity with body mass index of 39.8. RECOMMENDATIONS AND DISCUSSION: I recommend to continue current medications, continue with monitoring and symptomatic treatment. Otherwise, at this time we will continue with current medications continue with symptomatic treatment, continue with antiplatelet agents and continue with beta blockers. Closely follow with Cardiology. Guarded prognosis. Further recommendations to follow. MMODL / IJN: [id number] /
[2020-08-18 15:13] VITALS: BMI 40.1
[2020-08-18] MEDS: TICAGRELOR 90 MG TAB PO SCH (20:05)
[2020-08-18] MEDS: ATORVASTATIN 80 MG TAB PO SCH (20:05)
[2020-08-19] MEDS: PANTOPRAZOLE 40 MG TABLET PO SCH (06:24)
[2020-08-19] MEDS ORDERED: HEPARIN SODIUM,PORCINE 2,500 UNIT in SODIUM CHLORIDE 0.9% 250 ML IRRIGATION PRN (07:00)
[2020-08-19] MEDS ORDERED: HEPARIN SODIUM,PORCINE 10,000 UNIT in SODIUM CHLORIDE 0.9% 1,000 ML IRRIGATION PRN (07:00)
[2020-08-19 07:48] LABS: Basophils % (A) 1 %; Eosinophils # (A) 0.2 k/uL (0-0.7); Eosinophils % (A) 3 %; HCT 44.6 % (34.0-46.0); HGB 14.4 gm/dL (11.4-16.0); Lymphocytes # (A) 2.6 k/uL (1.0-4.8); Lymphocytes % (A) 29 %; MCH 31.1 pg (25.0-35.0); MCHC 32.3 g/dL (31.0-37.0); MCV 96.2 fL (80.0-100.0); Mean Platelet Volume 7.9; Monocytes # (A) 0.6 k/uL (0-1.0); Monocytes % (A) 7 %; Neutrophils # (A) 5.2 k/uL (1.3-7.7); Neutrophils % (A) 59 %; Platelet Count 201 k/uL (150-450); RBC 4.63 m/uL (3.80-5.40); RDW 12.8 % (11.5-15.5); WBC 8.9 k/uL (3.8-10.6)
[2020-08-19 08:03] LABS: African American GFR (CKD) >90 (>60 ml/min/1.73 sqM); Anion Gap 10 mmol/L; Blood Urea Nitrogen 12 mg/dL (7-17); Calcium 8.9 mg/dL (8.4-10.2); Carbon Dioxide 26 mmol/L (22-30); Chloride 102 mmol/L (98-107); Glucose 117 mg/dL (74-99); Non-African American GFR(CKD) >90 (>60 ml/min/1.73 sqM); Potassium 4.1 mmol/L (3.5-5.1); Sodium 138 mmol/L (137-145)
[2020-08-19] MEDS: ASPIRIN 81 MG PO SCH (09:17)
[2020-08-19] MEDS: METOPROLOL TARTRATE 50 MG TAB PO SCH (09:17)
[2020-08-19] MEDS: TICAGRELOR 90 MG TAB PO SCH (09:17)
[2020-08-19] MEDS: lisinopriL 10 MG TAB PO SCH (09:17)
[2020-08-19 10:16] VITALS: BP 117/58; PULSE 58; RESP 20; TEMP 97.8
--- NOTE | 2020-08-19 10:47 | PN ---
PROGRESS NOTE Shannan is a 60-year-old lady that is admitted to hospital with unstable angina, underwent cardiac catheterization and angioplasty of proximal right coronary artery. The patient had mild [id number] elevation AR. This morning she is feeling fine and is free of symptoms. The patient had a cardiac catheterization through right femoral artery. There was an initial attempt at performing right radial cath. PHYSICAL EXAMINATION: On exam, comfortable at rest. Vital signs are stable. Chest exam reveals good air entry bilaterally. Heart exam reveals first and second heart sounds. No gallop. No murmur. Abdomen is soft. Examination of extremities did not reveal any edema. Groin is free of bleeding, bruit and hematoma. Right radial artery access site showed mild ecchymosis. LABS: Labs show that the potassium is 4.1. Creatinine is 0.7. LDL cholesterol is 40. ASSESSMENT: Acute non ST-segment elevation myocardial infarction, status post catheterization and angioplasty of right coronary artery. The patient is currently on aspirin, Lipitor, Brilinta, Lopressor and Zestril. The patient will be discharged home today and follow up with Dr. Rider. KETTY / HOWARD: [id number] /
--- NOTE | 2020-08-20 01:18 | P.DS ---
Providers Date of admission: 08/19/20 08:23 Attending physician: Yusuf Tao MD Consults: 08/17/20 09:11 Consult Physician Urgent Consulting Provider: Sal Rider Consult Reason/Comments: chest pain Do you want consulting provider notified?: Yes 08/18/20 10:48 Consult Physician Routine Consulting Provider: [facility] Consult Reason/Comments: Post Interventional patient Do you want consulting provider notified?: Already Contacted Primary care physician: Stated None Hospital Course: Diagnoses: Chest pain secondary to non-STEMI status post cardiac cath and stent placement of new stent of the right coronary artery History of coronary artery disease and previous stent placement 2 months ago Hypertension Hyperlipidemia Hospital course: This is a pleasant 60 years old female with history of coronary artery disease and previous stent placement on aspirin and brillinta presents because of chest pressure and dyspnea and found to have slightly elevated troponin concerning for non-STEMI underwent cardiac cath and a new stent placement in the RCA. Postprocedure patient is back to baseline, she was asymptomatic with no chest pain or dyspnea. No dizziness. No change in urine or bowel habits. No fever. No other complaints, she was eager to go home today from morning Patient was cleared for discharge by dressage judge Patient states that she has her aspirin and brillinta at home as well as other medication including lisinopril, beta ethan and statin Problems and management plan were discussed with the patient and he verbalized understanding and acceptance Patient was found stable and can be discharged home however he needs follow-up as an outpatient. Patient was instructed to follow up with PCP within one week and patient agrees. Patient was instructed to follow up with Dr. Stratton and she agrees with appointment in 08/21 in 2 days stating that she will follow up Physical exam Gen: patient is a AAOx3, no distress CVS: S1-S2, RRR, no murmur Lungs: B/L CTA, no wheezing Abdomen: soft, no distention, no tenderness, positive bowel sounds Extremity: no leg edema or induration Time spent more than 35 minutes Patient Condition at Discharge: Fair Plan - Discharge Summary Discharge Rx Participant: Yes New Discharge Prescriptions: Continue Acetaminophen/Diphenhydramine [Tylenol PM 500-25mg] 1 tab PO HS Aspirin 81 mg PO DAILY #30 chew Ticagrelor [Brilinta] 90 mg PO BID #60 tab Atorvastatin [Lipitor] 80 mg PO HS #30 tab Metoprolol Tartrate [Lopressor] 50 mg PO BID #60 tab Nitroglycerin Sl Tabs [Nitrostat] 0.4 mg SUBLINGUAL Q5M PRN #30 tab PRN Reason: Chest Pain lisinopriL [Zestril] 10 mg PO DAILY #30 tab Inulin/Chromium Picolinate [Fiber Gummies Chew] 1 tab PO DAILY Discharge Medication List Acetaminophen/Diphenhydramine [Tylenol PM 500-25mg] 1 tab PO HS 12/28/19 [History] Aspirin 81 mg PO DAILY #30 chew 12/30/19 [Rx] Atorvastatin [Lipitor] 80 mg PO HS #30 tab 12/30/19 [Rx] Metoprolol Tartrate [Lopressor] 50 mg PO BID #60 tab 12/30/19 [Rx] Nitroglycerin Sl Tabs [Nitrostat] 0.4 mg SUBLINGUAL Q5M PRN #30 tab 12/30/19 [Rx] Ticagrelor [Brilinta] 90 mg PO BID #60 tab 12/30/19 [Rx] lisinopriL [Zestril] 10 mg PO DAILY #30 tab 12/30/19 [Rx] Inulin/Chromium Picolinate [Fiber Gummies Chew] 1 tab PO DAILY 08/17/20 [History] Follow up Appointment(s)/Referral(s): Sal Rider MD [STAFF PHYSICIAN] - 08/21/20 11:15 am None,Stated [Primary Care Provider] - 1-2 days Patient Instructions/Handouts: Coronary Artery Disease (GEN), Right Heart Catheterization (DC), Heart Healthy Diet (GEN) Activity/Diet/Wound Care/Special Instructions: Heart healthy diet Activity is restricted until you see your doctor Discharge Disposition: HOME SELF-CARE
== END 2020-08-19 13:00 | disposition home or self-care (01) | DRG 247 ==
LOC: EC 07:40 → 6NMEDSUR 09:14 → 3SCARD 16:25 → OBSVTOIN 08-19 08:23
PROVIDERS: ADMIT Internal Medicine; ATTEND Internal Medicine
PROC: B2111ZZ Fluoroscopy of Multiple Coronary Arteries using Low Osmolar Contrast (ICD-10-PCS; 2020-08-18)
PROC: 027034Z Dilation of Coronary Artery, One Artery with Drug-eluting Intraluminal Device, Percutaneous Approach (ICD-10-PCS; principal; 2020-08-18 14:20)
PROC: 4A023N7 Measurement of Cardiac Sampling and Pressure, Left Heart, Percutaneous Approach (ICD-10-PCS; 2020-08-18 14:20)
DX: I21.4 Non-ST elevation (NSTEMI) myocardial infarction (principal); T82.855A Stenosis of coronary artery stent, initial encounter; Z68.41 Body mass index [BMI] 40.0-44.9, adult; Z20.822 Contact with and (suspected) exposure to COVID-19; I25.10 Atherosclerotic heart disease of native coronary artery without angina pectoris; I10 Essential (primary) hypertension; E66.9 Obesity, unspecified; E87.5 Hyperkalemia; D75.1 Secondary polycythemia; I08.1 Rheumatic disorders of both mitral and tricuspid valves; E78.5 Hyperlipidemia, unspecified; F41.9 Anxiety disorder, unspecified; Y83.1 Surgical operation with implant of artificial internal device as the cause of abnormal reaction of the patient, or of later complication, without mention of misadventure at the time of the procedure; I25.2 Old myocardial infarction; Z79.82 Long term (current) use of aspirin; Z79.899 Other long term (current) drug therapy; Z79.02 Long term (current) use of antithrombotics/antiplatelets; Z95.5 Presence of coronary angioplasty implant and graft; Z80.0 Family history of malignant neoplasm of digestive organs; Z80.51 Family history of malignant neoplasm of kidney; Z82.49 Family history of ischemic heart disease and other diseases of the circulatory system; Z80.1 Family history of malignant neoplasm of trachea, bronchus and lung
CPT/HCPCS: 36415; 71046; 80048; 80053; 80061; 83690; 83735; 83880; 84484; 85025; 85347; 85610; 85730; 87635; 93005; 93458; 96374; 96375; 99285

== ENCOUNTER → 2021-02-10 | Outpatient (CLI) | payer BC ==
[2021-02-10 14:14] LABS: Chol/HDL Ratio 2.59; LDL Cholesterol,Calculated 41.8 mg/dL (0.0-131.0); VLDL Calculation 23.2 mg/dL (5.00-40.00)
== END | disposition home or self-care (01) ==
LOC: LABWHC1 08:09
PROVIDERS: ATTEND Internal Medicine Interventional Cardiology
DX: E78.2 Mixed hyperlipidemia (principal)
CPT/HCPCS: 36415; 80061; 84450; 84460

== ENCOUNTER → 2021-06-18 | Outpatient (CLI) | payer BC ==
[2021-06-18 16:11] LABS: ALT 22 U/L (8-44); AST 27 U/L (13-35); African American GFR (CKD) 91.6 (60.0-200.0); Albumin 4.4 g/dL (3.8-4.9); Albumin/Globulin Ratio 1.52 (1.60-3.17); Alkaline Phosphatase 121 U/L (41-126); BUN/Creat Ratio 8.88 Ratio (12.00-20.00); Blood Urea Nitrogen 7.1 mg/dL (9.0-27.0); Calcium 9.5 mg/dL (8.7-10.3); Carbon Dioxide 23.4 mmol/L (20.0-27.5); Chloride 107 mmol/L (96-109); Chol/HDL Ratio 2.08 Ratio; Globulin 2.9 g/dL (1.6-3.3); Glucose 113 mg/dL (70-110); LDL Cholesterol,Calculated 39.8 mg/dL (0.0-131.0); Potassium 4.3 mmol/L (3.5-5.5); Sodium 145 mmol/L (135-145); Total Protein 7.3 g/dL (6.2-8.2); VLDL Calculation 16.66 mg/dL (5.00-40.00)
== END | disposition home or self-care (01) ==
LOC: LABWHC1 08:20
PROVIDERS: ATTEND Internal Medicine Interventional Cardiology
DX: E78.2 Mixed hyperlipidemia (principal)
CPT/HCPCS: 36415; 80053; 80061

== ENCOUNTER → 2021-12-09 | Outpatient (CLI) | payer BC ==
[2021-12-09 14:51] LABS: ALT 17 U/L (8-44); AST 26 U/L (13-35); African American GFR (CKD) 94.3 (60.0-200.0); Albumin 4.1 g/dL (3.8-4.9); Albumin/Globulin Ratio 1.27 (1.60-3.17); Alkaline Phosphatase 102 U/L (41-126); BUN/Creat Ratio 11.45 Ratio (12.00-20.00); Blood Urea Nitrogen 8.9 mg/dL (9.0-27.0); Calcium 9.3 mg/dL (8.7-10.3); Chloride 107 mmol/L (96-109); Chol/HDL Ratio 2.41 Ratio; Globulin 3.2 g/dL (1.6-3.3); Glucose 114 mg/dL (70-110); Non-African American GFR(CKD) 81.3 (60.0-200.0); Potassium 4.2 mmol/L (3.5-5.5); Sodium 141 mmol/L (135-145); Total Protein 7.3 g/dL (6.2-8.2)
== END | disposition home or self-care (01) ==
LOC: LABWHC1 07:32
PROVIDERS: ATTEND Internal Medicine Interventional Cardiology
DX: E78.2 Mixed hyperlipidemia (principal)
CPT/HCPCS: 36415; 80053; 80061

== ENCOUNTER → 2022-03-26 | Outpatient (CLI) | payer BC ==
[2022-03-26 11:49] LABS: ALT 16 U/L (8-44); AST 21 U/L (13-35); LDL Cholesterol,Calculated 35.4 mg/dL (0.0-131.0); VLDL Calculation 17.96 mg/dL (5.00-40.00)
== END | disposition home or self-care (01) ==
LOC: LABWHC1 07:18
PROVIDERS: ATTEND Internal Medicine Interventional Cardiology
DX: E78.2 Mixed hyperlipidemia (principal)
CPT/HCPCS: 36415; 80061; 84450; 84460

== ENCOUNTER → 2022-10-08 | Outpatient (CLI) | payer BC ==
[2022-10-08 11:11] LABS: ALT 26 U/L (8-44); AST 26 U/L (13-35); African American GFR (CKD) 90.9 (60.0-200.0); Albumin 4.5 g/dL (3.8-4.9); Albumin/Globulin Ratio 1.32 (1.60-3.17); Alkaline Phosphatase 137 U/L (41-126); Blood Urea Nitrogen 11.6 mg/dL (9.0-27.0); Calcium 9.9 mg/dL (8.7-10.3); Carbon Dioxide 22.5 mmol/L (20.0-27.5); Chloride 106 mmol/L (96-109); Chol/HDL Ratio 2.41 Ratio; Globulin 3.4 g/dL (1.6-3.3); Glucose 118 mg/dL (70-110); LDL Cholesterol,Calculated 50.4 mg/dL (0.0-131.0); Non-African American GFR(CKD) 78.5 (60.0-200.0); Potassium 4.6 mmol/L (3.5-5.5); Sodium 142 mmol/L (135-145); Total Protein 7.9 g/dL (6.2-8.2)
== END | disposition home or self-care (01) ==
LOC: LABWHC1 08:03
PROVIDERS: ATTEND Internal Medicine Interventional Cardiology
DX: E78.2 Mixed hyperlipidemia (principal)
CPT/HCPCS: 36415; 80053; 80061

== ENCOUNTER → 2023-02-07 | Outpatient (CLI) | payer BC ==
[2023-02-07 14:15] LABS: Chol/HDL Ratio 2.03 Ratio; LDL Cholesterol,Calculated 37.5 mg/dL (0.0-131.0)
[2023-02-07 14:22] LABS: ALT 20 U/L (8-44); AST 30 U/L (13-35); Albumin 4.3 d/dL (3.8-4.9); Albumin/Globulin Ratio 1.48 Ratio (1.60-3.17); Alkaline Phosphatase 109 U/L (41-126); BUN/Creat Ratio 7.75 Ratio (12.00-20.00); Blood Urea Nitrogen 6.2 mg/dL (9.0-27.0); Calcium 9.7 mg/dL (8.7-10.3); Carbon Dioxide 26.4 mmol/L (21.6-31.8); Chloride 106 mmol/L (96-109); Globulin 2.9 d/dL (1.6-3.3); Glucose 120 mg/dL (70-110); Potassium 4.4 mmol/L (3.5-5.5); Sodium 144 mmol/L (135-145); Total Bilirubin 0.6 mg/dL (0.3-1.2); Total Protein 7.2 d/dL (6.2-8.2)
== END | disposition home or self-care (01) ==
LOC: LABWHC1 08:06
PROVIDERS: ATTEND Internal Medicine Interventional Cardiology
DX: I10 Essential (primary) hypertension (principal); E78.2 Mixed hyperlipidemia
CPT/HCPCS: 36415; 80053; 80061

== ENCOUNTER → 2024-01-17 | Outpatient (CLI) | payer BC ==
[2024-01-17 17:27] LABS: ALT 19 U/L (8-44); AST 23 U/L (13-35); Albumin 4.4 g/dL (3.8-4.9); Albumin/Globulin Ratio 1.42 Ratio (1.60-3.17); Alkaline Phosphatase 142 U/L (41-126); BUN/Creat Ratio 13.56 Ratio (12.00-20.00); Blood Urea Nitrogen 12.2 mg/dL (9.0-27.0); Calcium 9.7 mg/dL (8.7-10.3); Carbon Dioxide 26.4 mmol/L (21.6-31.8); Chloride 105 mmol/L (96-109); Chol/HDL Ratio 2.46 Ratio; Globulin 3.1 g/dL (1.6-3.3); Glucose 110 mg/dL (70-110); LDL Cholesterol,Calculated 59.6 mg/dL (0.0-131.0); Potassium 4.5 mmol/L (3.5-5.5); Sodium 142 mmol/L (135-145); Total Bilirubin 0.5 mg/dL (0.3-1.2); Total Protein 7.5 g/dL (6.2-8.2)
== END | disposition home or self-care (01) ==
LOC: LABWHC1 08:00
PROVIDERS: ATTEND Internal Medicine Interventional Cardiology
DX: E78.2 Mixed hyperlipidemia (principal)
CPT/HCPCS: 36415; 80053; 80061